=== PATIENT | male | born 1955 | race Caucasian/White ===

== ENCOUNTER 2021-11-30 10:26 | Observation (INO) ==
--- NOTE | 2021-11-26 16:15 | Anesthesiology Consultation ---
Date of Service November 26, 2021 Assessment & Plan (1) Encounter for pre-operative examination: - Case discussed with Dr. Mar who advised pt to have cardiology pre-op evaluation prior to surgery. Pt aware, denied questions or concerns. - cardiology office visit 11/11/2020 S: "...Coronary artery disease, s/p NSTEMI, Single-vessel disease with 95-99% thrombotic occlusion of the circumflex, successfully treated with x1 KATHRYN (2.5 x 28 mm Xience), 06/2014 in [place], [place] at [facility] (report listed in Care Everywhere- summary below). HFrEF, nonischemic cardiomyopathy, EF 35% 06/2020, improved to 45 to 49% 11/2020...At this appointment he was having ongoing shortness of breath- underwent cardiac catheterization on 07/24/2020 showing a patent left circumflex stent and mild nonobstructive CAD otherwise. Patient was continued on goal-directed medical therapy including Entresto, no beta-priscilla due to sinus bradycardia. Repeat echocardiogram on 11/05 showed an improved LVEF of 45-49% with mild diastolic dysfunction, grade 1. There was also a small [id number] shunt through the PFO with Valsalva by saline contrast injection, patient is on aspirin...presents feeling generally well from a cardiac standpoint. Denies any exertional chest pain or shortness of breath. Has been exercising daily by walking around his property which is about 2 acres. He is able to mow the grass independently. Believes that his functional capacity has increased over the last 4 months. Also notes that the use of Advair has helped his breathing...Discontinue Entresto and start lisinopril 5 mg daily, patient was educated to complete a washout period of 36 hours. Patient is to hold his evening dose of Entresto today and both doses tomorrow. He will start lisinopril on ...return in about 4 months..." Pt did not return for f/u appt per [facility] record review. - COVID screening: Per research laboratory specialist on 11/26/2021: Travel screen negative, no known COVID-19 positive contacts or current COVID-19 related symptoms in past 2 weeks. To surgeon's discretion if preop COVID testing needed. Chart Review Chart Review: Pending: Refer to Additional Notes / Consult section and Patient NOT seen in Pre Admission Testing History Surgery Operation Date: 11/30/21 12:15 Proposed Procedures p Open Repair Left Inguinal Hernia with Mesh - Ashish Aguilera MD Height/Weight Height: 5 ft 9 in Weight: 76.204 kg Allergies Allergy/AdvReac Type Severity Reaction Status Date / Time No Known Allergies Allergy Verified 11/26/21 14:34 Medications Home Medications Medication Instructions Recorded Confirmed Last Taken albuterol 90 mcg/actuation aerosol 2 mcg inhalation Q6H PRN Wheezing 07/24/20 11/26/21 Unknown inhaler atorvastatin 80 mg tablet 80 mg PO QAM 07/24/20 11/26/21 Unknown nitroglycerin 0.4 mg sublingual 0.4 mg sublingual DIRECTED PRN 07/24/20 11/26/21 Unknown tablet Chest Pain aspirin 81 mg tablet,delayed 81 mg PO QAM 11/26/21 11/26/21 Unknown release escitalopram oxalate 10 mg tablet 10 mg PO QAM 11/26/21 11/26/21 Unknown (Lexapro) famotidine 20 mg tablet 20 mg PO DAILY PRN Acid Reflux 11/26/21 11/26/21 Unknown fluticasone 250 mcg-salmeterol 50 1 inh inhalation BID 11/26/21 11/26/21 Unknown mcg/dose blistr powdr for inhalation (Advair Diskus) lisinopril 2.5 mg tablet 2.5 mg PO QAM 11/26/21 11/26/21 Unknown Past Medical History Medical History (Updated 11/26/21 @ 16:13 by Christine Martinez PA-C) Acid reflux Bradycardia CAD (coronary artery disease) s/p Cx KATHRYN 2015 Chronic obstructive pulmonary disease res inh few times per week, depends on weather Depression Emphysema, unspecified GERD (gastroesophageal reflux disease) Heart attack 2016 > stents placed at [facility] Heart failure with reduced ejection fraction EF 35% improved to 45-59% 11/2020 History of hepatitis C Hyperlipidemia Hypertension Nonischemic cardiomyopathy follows with [facility] cardiology PFO with atrial septal aneurysm Past Surgical History Surgical History (Updated 11/26/21 @ 15:56 by Christine Martinez PA-C) History of cardiac cath multiple History of cataract surgery bilat History of colonoscopy Hx of inguinal hernia repair bilat as child Social History Smoking Status: Former smoker Do You Dip or Chew Tobacco: No Smoking End Date: 1 year ago Hx Alcohol Use: No Alcohol Intake Frequency 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 Hx Substance Use: No substance use type: does not use Testing Laboratory Results 11/25/2021 WBC: 6 H/H: 14/43 PLATELETS: 194 SODIUM: 140 POTASSIUM: 4.5 CHLORIDE: 101 CO2: 29 BUN: 26 CREATININE: 1.1 GLUCOSE: 107 Electrocardiogram Date: 11/25/21 Sinus rhythm with ventricular pacing, rate 48 bpm Left anterior fascicular block Possible lateral infarct, age undetermined Increased R/S ratio in V1, consider early transition or posterior infarct Echocardiogram Date: 11/05/20 EF 45-49% Grade I diastolic dysfunction Borderline increased LV wall thickness in segments Extensive area of hypokinesis to akinesis of the inferior, posterior and postero-lateral gordon and inferior apex Mild mitral regurgitation Mild tricuspid regurgitation Atrial septal aneurysm Small right to left shunt through PFO Stress Test Date: 07/07/20 Pharmacologic Small area of scar involving the basal/mid inferolateral wall Mildly reduced LV systolic function MPHR 86% Cardiac Catheterization Date: 07/24/20 Left Main (% Stenosis): Normal LAD (% Stenosis): Proximal (30%) and Mid (30% distal to large [id number] bridging) D1 (% Stenosis): Mid (30% stenosis of medial branch distal to bifurcation) Circumflex (% Stenosis): Proximal (Patent stent extending into OM1) and Mid (30% jailed by stentint into OM1) OM1 (% Stenosis): Proximal (Patent stent extending from proximal) OM2 (% Stenosis): Normal L PL1 (% Stenosis): Normal RCA (% Stenosis): Proximal (10%) and Mid (10%) R PDA (% Stenosis): Normal R PL1 (% Stenosis): Normal R PL2 (% Stenosis): Normal AM (% Stenosis): Normal Ramus (% Stenosis): Normal Patent left circumflex stent. Otherwise mild nonobstructive CAD.
[~2021-11-30 10:26] MED LIST: LACTATED RINGER'S 1,000 ML IV SCH; ceFAZolin 2000MG 2,000 MG/15 ML SYR IV SCH
[2021-11-30] MEDS ORDERED: PROPOFOL IV EMULSION 10 MG/ML 20 ML VIAL IV ONE ×2 (11:15→12:30)
[2021-11-30] MEDS ORDERED: MIDAZOLAM HCL 1 MG/ML 2ML VIAL ONE (11:15)
[2021-11-30] MEDS ORDERED: DEXAMETHASONE SOD INJ 4 MG/ML VIAL ONE (11:15)
[2021-11-30] MEDS ORDERED: ONDANSETRON INJ 2 MG/ML 2 ML VIAL ONE (11:15)
[2021-11-30] MEDS ORDERED: fentaNYL citrate 100 MCG/2 ML VIAL ONE (11:15)
[2021-11-30] MEDS ORDERED: KETOROLAC 30 MG/ML VIAL ONE (11:15)
[2021-11-30] MEDS ORDERED: LIDOCAINE 2% MPF LOCAL 5 ML VIAL INFIL ONE (11:15)
[2021-11-30] MEDS ORDERED: BUPIVACAINE 0.5 % 5 MG/1 ML MPF 30ML VIAL ONE (11:52)
[2021-11-30] MEDS ORDERED: BACITRACIN OINT 15 GM TUBE ONE (11:52)
[2021-11-30] MEDS ORDERED: LIDOCAINE 1% LOCAL 20 ML VIAL ONE ×2 (11:53→11:55)
--- NOTE | 2021-11-30 12:02 | History & Physical Bridge Note ---
Date of Service November 30, 2021 History & Physical Bridge Note I have examined the patient, reviewed the History & Physical and in the interval since the performance of the History & Physical I have noted the following changes of clinical significance: no changes noted
[2021-11-30] MEDS ORDERED: GLYCOPYRROLATE 0.2 MG/ML VIAL ONE (12:32)
[2021-11-30] MEDS ORDERED: ePHEDrine sulfate 50 MG/ML AMP IV PRN (12:44)
[2021-11-30] MEDS ORDERED: fentaNYL citrate 100 MCG/2 ML VIAL IV PRN (12:44)
[2021-11-30] MEDS ORDERED: ONDANSETRON INJ 2 MG/ML 2 ML VIAL IV PRN ×2 (12:44→12:59)
[2021-11-30] MEDS ORDERED: ATROPINE SULFATE 0.1 MG/ML 10ML SYR IV PRN (12:44)
--- NOTE | 2021-11-30 12:53 | Post Operative Brief Note ---
Immediate Post Op Note v1 Date of Surgery November 30, 2021 Pre & Post Diagnosis Operation Date: 11/30/21 12:00 Pre-Op Diagnosis: recurrent Left Inguinal Hernia Post-Op Diagnosis: recurrent Left Inguinal Hernia I identified the patient and participated in the time-out.: Yes Procedure Operation Date: 11/30/21 12:00 Actual Procedures p Open left Inguinal Hernia Repair with Mesh(Left) - Ashish Aguilera MD Surgeon Ashish Aguilera MD Building Custodial Supervisor surgical instrument mechanic Estimated Blood Loss 10 Findings Consistent with Post-Op Diagnosis left recurrent indirect inguinal hernia Fluids 800ml Anesthesia Type Local Complications none Disposition Accompanied Patient To Recovery: Yes
[2021-11-30] MEDS ORDERED: ACETAMINOPHEN 325 MG TAB PO PRN (12:59)
--- NOTE | 2021-11-30 13:46 | Anesthesiology Progress Note ---
Date of Service November 30, 2021 Anesthesia Post Procedure Vital Signs Vital Signs: Temp Pulse Pulse Resp BP Pulse Ox O2 Del Method 11/30/21 13:40 52 L 14 129/73 95 Nasal Cannula 11/30/21 13:30 36.4 C L 55 L 18 137/76 93 Room Air 11/30/21 13:20 57 L 23 136/89 94 Room Air 11/30/21 13:10 52 L 16 155/81 H 95 Room Air 11/30/21 13:03 36.3 C L 51 L 16 158/78 H 98 Oxymask 11/30/21 10:51 36.5 C 54 L 20 164/82 H 96 Room Air O2 Flow Rate 11/30/21 13:40 2 11/30/21 13:30 11/30/21 13:20 11/30/21 13:10 11/30/21 13:03 3 11/30/21 10:51 Transfer of Care Handoff Completed per policy Notes Mental Status: alert / awake / arousable Patient Amnestic to Procedure: Yes Nausea / Vomiting: adequately controlled Pain: adequately controlled Airway Patency, RR, SpO2: stable & adequate BP & HR: stable & adequate Hydration State: stable & adequate Anesthetic Complications: no major complications apparent
[2021-11-30] MEDS ORDERED: HYDROmorphone INJ 0.5 MG/0.5 ML SYR IV PRN (14:19)
[2021-11-30] MEDS ORDERED: FAMOTIDINE 20 MG TAB PO PRN (14:19)
[2021-11-30] MEDS ORDERED: LACTATED RINGER'S 1,000 ML IV SCH (14:19)
[2021-11-30] MEDS ORDERED: NITROGLYCERIN SL 0.4 MG/TAB TAB SL PRN (14:19)
[2021-11-30] MEDS ORDERED: ALBUTEROL HFA 8 GM INHALER INH PRN (14:52)
[2021-11-30] MEDS ORDERED: ENOXAPARIN INJ 40 MG/0.4 ML SYR SQ SCH (15:00)
[2021-11-30 16:23] LABS: Creatinine Clr Calc Pharmacy 73.4 ml/min; Est GFR (African American) 91.6 ml/min
[2021-11-30] MEDS: oxyCODONE/ACETAMINOPHEN 5mg/325mg TAB PO PRN ×2 (16:37→22:56)
[2021-11-30] MEDS ORDERED: ceFAZolin 1000MG 1,000 MG/7.5 ML SYR IV ONE (18:00)
[2021-11-30] MEDS ORDERED: FLUTICASONE/VILANTEROL 100/25MCG 14 PUFFS/INHALER INH SCH (21:00)
[2021-11-30] MEDS ORDERED: FLUTICASONE/SALMETEROL 250/50 (ADVAIR) 14 PUFF/1 INHALER INH SCH (21:00)
--- NOTE | 2021-11-30 21:49 | Operative Report (OR) ---
DATE OF PROCEDURE: 11/30/2021. PREOPERATIVE DIAGNOSIS: Recurrent left inguinal hernia. POSTOPERATIVE DIAGNOSIS: Recurrent left indirect inguinal hernia. OPERATION: Open repair of left inguinal hernia with mesh. SURGEON: Ashish Aguilera MD. ANESTHESIA: Conscious sedation plus local. ESTIMATED BLOOD LOSS: About 10 mL. FINDINGS: Recurrent left indirect inguinal hernia. COMPLICATIONS: None. INDICATIONS FOR THE PROCEDURE: This is a 66-year-old gentleman who presented with recurrent left ing uinal hernia with significant heart disease and I recommended to do open repair of left inguinal mendez ia with mesh and sedation plus local. I did talk to the patient about the benefit, risk, alternate p rocedure. I indicated the risks may include, but not limited to, such as bleeding, infection, hernia recurrence, chronic pain, complication related to mesh, myocardial infarction, DVT, stroke, even adni th. The patient understands. He signed informed consent and I answered all questions. DETAILS OF PROCEDURE: After we identified the patient and verified the procedure, we brought the pat ient to the OR, put the patient in the supine position on the OR table. The patient received SCD on bilateral legs to prevent DVT. Also, the patient received 2 grams Ancef IV for prophylactic antibiot ic. The patient received conscious sedation by the anesthesiology. The abdomen and pelvic area was prepped and draped in routine sterile fashion. After timeout, I injected the local anesthesia by usi ng 1% lidocaine mixed with 0.5% Marcaine around the left inguinal area on the old scar area. Then, we made a 4-cm incision about 1 cm below the scar, dissected the subcutaneous layer, reached th e external oblique, then we opened the external oblique, and then mobilized the cord structures. The n, we found the patient had recurrent left indirect inguinal hernia. We mobilized the hernia sac lia k to the abdominal cavity. We chose a large plug to plug the hernia sac, used 2-0 Prolene to close t he hernia neck. Then, I chose a 3 x 5 cm mesh to reinforce the posterior wall. I used 2-0 Prolene s uture mesh to conjoined tendon in continuous running, another 2-0 Prolene suture mesh to left inguina l ligament in continuous running, 2 sutures met together, tied. The mesh seated nicely, no tension. Hemostasis obtained, then I closed the external oblique by using 2-0 Vicryl continuous running, clos ed subcutaneous layer by using 2-0 Vicryl continuous running, closed skin by using 4-0 Vicryl continu ous running. Then we put the dressing on. The patient tolerated the procedure well. All instrument, needle and sponge counts were correct x2 a t the end of the case. The patient was transferred to recovery room in stable condition. After the procedure, I did talk to the patient about the OR finding, the procedure we did, and also the patient required to admit in the hospital for observation overnight based on the patient has significant hea rt disease, the administrative intern recommended. The patient understands. I answered all questions. Job ID: [id number]
[2021-12-01] MEDS: oxyCODONE/ACETAMINOPHEN 5mg/325mg TAB PO PRN ×2 (05:42→12:48)
[2021-12-01 07:09] LABS: Basophils # (auto) 0.01 K/uL (0-0.2); Basophils % (auto) 0.1 %; Hematocrit (blood only) 37.9 % (40.1-51.0); Hemoglobin 13.1 g/dl (14.0-18.0); Immature Granulocytes # (auto) 0.06 K/uL (0.00-0.02); Immature Granulocytes % (auto) 0.6 %; Lymphocytes # (auto) 0.93 K/uL (1.2-3.4); Lymphocytes % (auto) 8.6 %; Mean Corpuscular Hemoglobin 32.3 pg (25.0-34.0); Mean Corpuscular Hgb Conc 34.6 g/dL (32.0-36.0); Mean Corpuscular Volume 93.6 fL (80.0-100.0); Mean Platelet Volume 9.5 fL (9.4-12.4); Monocytes # (auto) 0.72 K/uL (0.24-0.82); Monocytes % (auto) 6.6 %; Neutrophils # (auto) 9.15 K/uL (1.4-6.5); Neutrophils % (auto) 84.1 %; Platelet Count 196 K/uL (130-400); RDW Coefficient of Variation 12.4 % (11.5-14.5); Red Blood Count 4.05 M/uL (4.63-6.08); White Blood Count 10.87 K/ul (4.8-10.8)
[2021-12-01 08:09] LABS: Albumin Globulin Ratio 1.5 (0.9-2); Albumin Level 3.8 gm/dl (3.4-5.0); Bilirubin,Total 0.5 mg/dl (0.2-1.0); Calcium 8.7 mg/dl (8.5-10.1); Globulin 2.6 gm/dl (2.5-4.0); Potassium 4.4 mmol/L (3.5-5.1); Total Protein 6.4 gm/dl (6.0-8.3)
[2021-12-01] MEDS ORDERED: ESCITALOPRAM OXALATE 10 MG TAB PO SCH (09:00)
[2021-12-01] MEDS ORDERED: ASPIRIN 81 MG ECTAB PO SCH (09:00)
[2021-12-01] MEDS ORDERED: ATORVASTATIN 40 MG TAB PO SCH (09:00)
[2021-12-01] MEDS ORDERED: lisinopril 2.5 MG TAB PO SCH (09:00)
[2021-12-01 09:03] LABS: BUN Creatinine Ratio 27.8 (10-20); Creatinine Clr Calc Pharmacy 80.7 ml/min; Est GFR (African American) 102.8 ml/min; Est GFR (Non-African American) 88.7 ml/min
--- NOTE | 2021-12-01 10:37 | Discharge Summary ---
Date of Service December 01, 2021 Admission HPI Per Admitting Provider Patient presented to [facility] on 11/30/2021 for elective left inguinal hernia repair with mesh by Dr. Aguilera. Principal Diagnosis Left inguinal hernia Discharge Exam Constitutional WD/WN, vitals as above no acute distress and not ill appearing Respiratory normal respiratory effort, lungs clear to auscultation Cardiovascular Rate/Rhythm: + bradycardic Heart Sounds: normal S1 and normal S2 Gastrointestinal (Abdomen) Inspection/Auscultation: abdomen normal to inspection; abdomen not distended Percussion/Palpation: + abdomen tender (left groin at incision site) and abdomen soft; no guarding and abdomen not rigid Ecchymosis of the medial left groin Skin no rashes, warm and dry Psychiatric A+Ox3, euthymic affect Discharge Data Allergies Allergy/AdvReac Type Severity Reaction Status Date / Time No Known Allergies Allergy Verified 11/30/21 10:54 Consultations 11/30/21 14:19 Consult Hospitalist Routine Procedures Performed Operation Date: 11/30/21 12:00 Actual Procedures p Left Open Inguinal Hernia Repair with Mesh(Left) - Ashish Aguilera MD Hospital Course (1) Inguinal hernia: Plan Patient was taken to operating room for repair of left inguinal hernia and tolerated procedure well. He was admitted postoperatively for observation given his cardiac comorbidities for close monitoring. Patient evaluated on POD # 1 and doing well. Tolerated regular diet, no n,v , no chest pain or shortness of breath, postop pain mild but controlled, urinating without difficulty. Hemodynamically stable with HR in 50's which is stable for him. Patient was discharged home on POD # 1 in stable condition. Total Time Total Time Spent Total Time Spent (In Minutes): 30 minutes Total Time Includes: Examination of the Patient, Discharge Planning and Medication Reconciliation Discharge Plan Discharge Items Patient Disposition: Home - Self-Care Reason For Visit: Left Inguinal Hernia Discharge Diagnosis: status post open left inguinal hernia repair Activity: Per Instructions section Non-emergency contact: Primary Care Provider and Surgeon Call non-emergency contact if: you have any medication questions, your pain is not controlled, your pain is worsening, you have a fever, your temperature is above 101, your wound has increased redness, your wound has increased drainage and your wound pain has increased Follow-up/Referrals: [facility],Medicine [Primary Care Provider] - Diet: Regular Addtl Attending Provider Instructions: ACTIVITY RECOMMENDATIONS: * Walk as much as possible. * No heavy lifting (>10 lbs.) for 4-6 weeks. SPECIAL CARE INSTRUCTIONS: * Ice to hernia repair site on and off until bedtime tonight. * May shower in 48 hours. Sponge bath around incision in meantime. On , Let water run over area and pat dry. * Leave steri strips on for one week and then remove. * Call the surgeon's office with any questions or concerns - (ex. temperature higher than 101 degrees F, excessive bleeding or pain). MEDICATIONS: Resume previous medications unless instructed otherwise by your surgeon. - May take extra strength Tylenol as needed for mild to moderate pain * May take Ibuprofen 600 mg every 6 hours as needed (take with food) * Percocet 1 every 6 hours, as needed for moderate to severe pain - Recommend daily stool softener (Colace) while taking narcotic pain medication to prevent constipation or straining. Drink plenty of water daily. FOLLOW UP VISIT: If not already scheduled, please call the office to schedule a two week follow-u p appointment. Office number Pending Studies at Discharge: No Stand-Alone Forms: [facility] [employer], Smoking Cessation Medications and DC Order Prescriptions: New oxycodone-acetaminophen 5-325 mg tablet 1 tab PO Q6H PRN (Reason: pain) Qty: 10 0RF Continued atorvastatin 80 mg Tablet 80 mg PO QAM nitroglycerin 0.4 mg Tablet, Sublingual 0.4 mg sublingual DIRECTED PRN (Reason: Chest Pain) Rx Instructions: 1 sl q 5 mins for cp x 3 doses albuterol 90 mcg/actuation Aerosol 2 mcg INHALATION Q6H PRN (Reason: Wheezing) Rx Instructions: 2 puffs q 6 hrs as needed fluticasone propion-salmeterol [Advair Diskus] 250-50 mcg/dose Blister With Device 1 inh INHALATION BID aspirin 81 mg Tablet,Delayed Release (Dr/Ec) 81 mg PO QAM lisinopril 2.5 mg Tablet 2.5 mg PO QAM escitalopram oxalate [Lexapro] 10 mg Tablet 10 mg PO QAM famotidine 20 mg Tablet 20 mg PO DAILY PRN (Reason: Acid Reflux) Discharge Orders: Discharge Order (Routine); Ordered 12/01/21 Ordered By: Lexus Bello Admission Data Admit Date/Time: 11/30/21 13:00 Attending Provider: Ashish Aguilera Admit Provider: Ashish Aguilera [facility] Other Providers: Lurdes Palacios ; Jagruti Russo I. ; Hanna Lora ; Ciro Sanchez ; Angela Wooten ; Pao Salinas ; Caren Velasquez ; Shantanu Morrow ; Caio Ramirez ; Sandip Vizcaino ; Pilar Ryan ; Michael Bingham ; Judith Dunn ; Lorrie Crane ; Dominick Singh ; Kristen King ; Analilia Rivera ; Ambrosio Kilgore ; Funmi Dickens I. ; Beto Blum ; Maurisio Calvin ; Judith Sánchez ; Connie Campbell ; Cb Schmitt ; Prosper Bustillos ; Hugo Espinal ; Maciej Alexander ; Tonya Garrett
--- NOTE | 2021-12-01 11:37 | Consultation ---
Date of Consultation December 01, 2021 Assessment & Plan (1) Inguinal hernia: (2) CAD (coronary artery disease): (3) Dyslipidemia: (4) GERD (gastroesophageal reflux disease): Plan Patient is a 66-year-old male with past medical history of CAD status post stent in left circumflex in 2014, HFrEF, hyperlipidemia, COPD and sinus bradycardia is admitted to the hospital after undergoing surgery for left inguinal hernia on 11/30. 1) Recurrent Inguinal Hernia s/p Repair on 11/30 2) CAD s/p KATHRYN stent in 06/2014 3) Hyperlipidemia 4) Sinus Bradycardia Afebrile, normotensive and saturating well in room air. Telemetry shows sinus bradycardia; no episode of pauses Hb- 13.1 WBC- 10.87. Plan; Continue on current home medication including aspirin, lisinopril and Lipitor. 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 --Follow-up with his primary care doctor -- Pain control, DVT prophylaxis as per primary History of Present Illness Reason for Consultation: Postop left recurrent inguinal hernia repair Attending Physician: Ashish Aguilera MD History of Present Illness Patient is a 66-year-old male with past medical history of CAD status post stent in left circumflex in 2014, HFrEF, hype rlipidemia, COPD and sinus bradycardia is admitted to the hospital after undergoing surgery for left inguinal hernia on 11/30. Patient seen and examined at bedside. Is comfortable; not in any distress. He denies any chest pain, shortness of breath, abdominal discomfort, palpitation, dizziness, fever, chills, cough, melena, hematemesis or other urinary symptoms. He was seen by Dr. Rausch as outpatient on 11/27 preoperatively. His past medical history significant for coronary artery disease with NSTEMI requiring stent placement in circumflex in 06/2014. He is known to have sinus bradycardia and is recommended to have Zio patch monitoring as outpatient after the surgery. He is currently taking lisinopril for high blood pressure. The dose of lisinopril was decreased due to episode of dizziness. He is on aspirin 81 mg as secondary prophylaxis for CAD. He is on high-dose statin with Lipitor 80 mg once daily. He is a former smoker, currently works at [employer]. He denies any illicit drug use or alcohol abuse. Allergies Allergy/AdvReac Type Severity Reaction Status Date / Time No Known Allergies Allergy Verified 11/30/21 10:54 Home Medications Medication Instructions Recorded Confirmed Type albuterol 90 mcg/actuation aerosol 2 mcg inhalation Q6H PRN Wheezing 07/24/20 11/30/21 History inhaler atorvastatin 80 mg tablet 80 mg PO QAM 07/24/20 11/30/21 History nitroglycerin 0.4 mg sublingual 0.4 mg sublingual DIRECTED PRN 07/24/20 0 11/30/21 History tablet Chest Pain aspirin 81 mg tablet,delayed 81 mg PO QAM 11/26/21 11/30/21 History release escitalopram oxalate 10 mg tablet 10 mg PO QAM 11/26/21 11/30/21 History (Lexapro) famotidine 20 mg tablet 20 mg PO DAILY PRN Acid Reflux 11/26/21 11/30/21 History fluticasone 250 mcg-salmeterol 50 1 inh inhalation BID 11/26/21 11/30/21 History mcg/dose blistr powdr for inhalation (Advair Diskus) lisinopril 2.5 mg tablet 2.5 mg PO QAM 11/26/21 11/30/21 History oxycodone-acetaminophen 5 mg-325 1 tab PO Q6H PRN pain #10 tabs 12/01/21 Rx mg tablet Patient History Medical History (Updated 12/01/21 @ 11:40 by Maciej Alexander MD) Acid reflux Bradycardia CAD (coronary artery disease) s/p Cx KATHRYN 2014 Chronic obstructive pulmonary disease res inh few times per week, depends on weather Depression Emphysema, unspecified GERD (gastroesophageal reflux disease) Heart attack 2016 > stents placed at [facility] Heart failure with reduced ejection fraction EF 35% improved to 45-59% 11/2020 History of hepatitis C Hyperlipidemia Hypertension Nonischemic cardiomyopathy follows with [facility] cardiology PFO with atrial septal aneurysm Surgical History History of cardiac cath multiple History of cataract surgery bilat History of colonoscopy Hx of inguinal hernia repair bilat as child Social History Smoking Status: Former smoker Smoking End Date: 1 year ago; Second Hand Exposure: No; Do You Dip or Chew Tobacco: No; Tobacco Cessation Education Requested by Patient: No Hx Alcohol Use: No Hx Substance Use: No Preferred Language: Nigerian Communication Ability: Effective Build And Release Manager Required: No Beliefs That Will Affect Care: None Current Living Situation: Spouse Other Information That Helps Us Care for You: No Feels Safe at Home: Yes Safety Concerns: Feels Safe At This Time Assistive Devices: Glasses Review of Systems Review of Systems: All systems reviewed & are unremarkable except as noted in Subjective Physical Exam Physical Exam: Constitutional: WD/WN, vitals as above, NAD, sitting up in bed, pleasant, conversing easily Respiratory: normal respiratory effort, lungs clear to auscultation, no wheeze, rales, rhonchi. Normal insp/exp effort, no accessory muscle use Cardiovascular: RRR, no murmur, no edema Vessels: no JVD or carotid bruit Chest: normal inspection of chest Abdomen: Soft, dressing in place. Musculoskeletal: no cyanosis or clubbing, extremities motor strength 5/5 Skin: no rashes, warm and dry normal turgor Neurologic: PERRL, EOMI, accommodation nl, no face palsy, no dysarthria CN's II- XI intact bilaterally and moves all extremities Psychiatric: A+Ox3, euthymic affect Lymphatic: no cervical or axillary lymphadenopathy : deferred Results & Data ([facility]) Vital Signs (Past 12 Hours) Vital Signs Temp Pulse Pulse Resp BP Pulse Ox O2 Del Method 12/01/21 07:29 36.3 C L 51 L 16 134/70 93 Room Air 12/01/21 07:28 48 L 12/01/21 03:22 36.6 C 60 16 130/53 L 90 Room Air 12/01/21 01:35 51 L Laboratory Results Laboratory Results WBC 10.87 K/ul (4.8-10.8) H 12/01/21 06:46 RBC 4.05 M/uL (4.63-6.08) L 12/01/21 06:46 Hgb 13.1 g/dl (14.0-18.0) L 12/01/21 06:46 Hct 37.9 % (40.1-51.0) L 12/01/21 06:46 MCV 93.6 fL (80.0-100.0) 12/01/21 06:46 MCH 32.3 pg (25.0-34.0) 12/01/21 06:46 MCHC 34.6 g/dL (32.0-36.0) 12/01/21 06:46 RDW Std Deviation 43.0 fL (36.4-46.3) 12/01/21 06:46 RDW Coeff of Nate 12.4 % (11.5-14.5) 12/01/21 06:46 Plt Count 196 K/uL (130-400) 12/01/21 06:46 MPV 9.5 fL (9.4-12.4) 12/01/21 06:46 Immature Gran % (Auto) 0.6 % 12/01/21 06:46 Neut % (Auto) 84.1 % 12/01/21 06:46 Lymph % (Auto) 8.6 % 12/01/21 06:46 Harris % (Auto) 6.6 % 12/01/21 06:46 Eos % (Auto) 0.0 % 12/01/21 06:46 Baso % (Auto) 0.1 % 12/01/21 06:46 Neut # (Auto) 9.15 K/uL (1.4-6.5) H 12/01/21 06:46 Lymph # (Auto) 0.93 K/uL (1.2-3.4) L 12/01/21 06:46 Harris # (Auto) 0.72 K/uL (0.24-0.82) 12/01/21 06:46 Eos # (Auto) 0.00 K/uL (0-0.50) 12/01/21 06:46 Baso # (Auto) 0.01 K/uL (0-0.2) 12/01/21 06:46 Immature Gran # (Auto) 0.06 K/uL (0.00-0.02) H 12/01/21 06:46 Sodium 136 mmol/L (136-145) 12/01/21 06:46 Potassium 4.4 mmol/L (3.5-5.1) 12/01/21 06:46 Chloride 103 mmol/L (98-107) 12/01/21 06:46 Carbon Dioxide 28 mmol/L (21-32) 12/01/21 06:46 Anion Gap 5 (3-11) 12/01/21 06:46 BUN 25 mg/dl (6-23) H 12/01/21 06:46 Creatinine 0.90 mg/dl (0.6-1.4) 12/01/21 06:46 Est Cr Clr Drug Dosing 80.7 ml/min 12/01/21 06:46 Est GFR ( Amer) 102.8 ml/min 12/01/21 06:46 Est GFR (Non-Af Amer) 88.7 ml/min 12/01/21 06:46 BUN/Creatinine Ratio 27.8 (10-20) H 12/01/21 06:46 Glucose 121 mg/dl (70-99(Fasting)) H 12/01/21 06:46 Calcium 8.7 mg/dl (8.5-10.1) 12/01/21 06:46 Total Bilirubin 0.5 mg/dl (0.2-1.0) 12/01/21 06:46 AST 14 U/L (13-39) 12/01/21 06:46 ALT 15 U/L (7-52) 12/01/21 06:46 Alkaline Phosphatase 58 U/L (34-104) 12/01/21 06:46 Total Protein 6.4 gm/dl (6.0-8.3) 12/01/21 06:46 Albumin 3.8 gm/dl (3.4-5.0) 12/01/21 06:46 Globulin 2.6 gm/dl (2.5-4.0) 12/01/21 06:46 Albumin/Globulin Ratio 1.5 (0.9-2) 12/01/21 06:46 SARS-CoV-2, RNA, NAAT NEGATIVE (NEGATIVE) 11/30/21 10:47
== END 2021-12-01 13:30 | disposition home or self-care (01) ==
LOC: 3E 10:26 → ASU 10:26 → 2N 20:04

== ENCOUNTER 2024-11-19 12:09 | Inpatient (IN) ==
--- NOTE | 2024-11-19 13:02 | XRay Report ---
XR chest 1V not portable CLINICAL HISTORY: Chest pain, nonspecific COMPARISON STUDY: 09/28/2018 FINDINGS: There is mild cardiomegaly with mild pulmonary vascular congestion. No consolidation or ple ural effusion. No pneumothorax. IMPRESSION: Mild CHF. ACT 112: Negative or not required by law. Electronically signed by: Lee Woods M.D. 11/19/2024 1:01 PM
--- NOTE | 2024-11-19 13:14 | Emergency Department Note ---
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 He was seen at oracle application architect this morning and advised to come to the ER for likely heart catheterization. On arrival patient has EKG with bigeminy no overt ischemia. He does have a relatively low pulse though his heart rate is in the 60s with bigeminy. His blood pressure is quite elevated. I somewhat suspect this is driven by the anxiety of the situation and he does not have any clear signs or symptoms of hypertensive emergency. I ordered initial labs EKG and workup and immediately contact cardiology team. They plan to take him urgently up to the Electron Beam Welding Machine Operator. Will defer any anticoagulation to their team. Patient was stable at time of transfer to Electron Beam Welding Machine Operator. At this time without significant hypoxia shortness of breath or other acute findings or history I think PE is quite low and thus I do not feel he requires emergent CT PE prior to Electron Beam Welding Machine Operator evaluation. As patient went upstairs labs did start coming back. Fortunately troponin is normal though he has a mildly elevated BUN of uncertain etiology. I discussed the case with the hospitalist team who will take over following the cath. Triage/Nursing Notes reviewed by Me External Chart Review by me: Patient's discharge summary from 12/01/2021 was reviewed by me for past medical history Differential:Premature contractions, electrolyte abnormality, cardiac dysrhythmia, thyroid dysfunction, pulmonary embolism, infection, gastrointestinal, as well as other pathologies. Vital Signs: reviewed and remarkable for hypertension Labs:ED labs Reviewed by me and remarkable for bun elevation Imaging:X ray results are stated below per my interpretation: Chest: 1 view: No infiltrate, no effusion, normal cardiac border. EKG:As per my interpretation. Indication chest pain. Sinus rhythm at 62 bpm with frequent episodes of bigeminy with PVCs. And intraventricular block is noted as well. QTc of 430. There are no previous EKGs for comparison Cardiac/Tele Monitoring: Cardiac Monitoring: An Order was placed for continuous cardiac monitoring. The monitor shows a rate of 60 with a bigeminy sinus rhythm. Consults:Discussed with Dr. Valadez of cardiology service who plans to take patient to Electron Beam Welding Machine Operator for further evaluation. Discussed with hospital service to further manage. Plan: Disposition:Hospitalization. Condition: Fair History of Present Illness: 69-year-old gentleman arrives for evaluation of chest pains and palpitations. Patient notes a month or 2 of increasing palpitations. Intermittent episodes of chest pain feeling some tightness. This most recently occurred this morning. Also notes that at times he gets quite anxious and he also has increasing blood pressure. Patient was seen at [facility] last week and had labs and a CAT scan. Discharged to follow-up with cardiology. He saw cardiology today who advised to come to the ER for an emergent heart catheterization. He states he does not currently have any symptoms while sitting here at rest. He is not currently having any chest pain. He has not had any syncope. He denies any recent trauma or injuries. Patient is on no blood thinners other than aspirin 81 mg daily. He does have a history of stenting to the LAD about 10 years ago following a heart attack. Past Medical History: Hypertension, CAD, asthma, COPD, dyslipidemia Home Medications:See Below Allergies:nkda Vitals:Blood Pressure: 149/85, Pulse 63, RR 16, T 36.8C, O2 93% on RA Physical Exam: GENERAL: Patient is anxious appearing and in mild distress. RESPIRATORY: No dyspnea. Clear to auscultation and equal bilaterally. CARDIOVASCULAR: Regular rate and rhythm.No murmur appreciated. GASTROINTESTINAL: Abdomen soft, non-tender, no peritonitis. EXTREMITIES: Normal motion all extremities, no cyanosis, no edema. NEUROLOGIC: Alert and oriented. No focal neurologic deficits appreciated SKIN: No rash, no jaundice, no diaphoresis. PSYCH: Appropriate GCS: 15 ED Course: Times/Reassessments: Stable and taken to Electron Beam Welding Machine Operator Dru Rios MD Past Med/Surg History Problem List (Updated 11/20/24 @ 16:25 by Dru Rios MD) Bigeminy (Acute) Cardiomyopathy Acute heart failure with mildly reduced ejection fraction (HFmrEF, 41-49%) Nocturnal hypoxia Nonischemic cardiomyopathy follows with [facility] cardiology COPD, severe NSVT (nonsustained ventricular tachycardia) Frequent PVCs (Acute) Chest pain (Acute) GERD (gastroesophageal reflux disease) Dyslipidemia CAD (coronary artery disease) Inguinal hernia Medical History PFO with atrial septal aneurysm Bradycardia Heart failure with reduced ejection fraction EF 35% improved to 45-59% 11/2020 Nonischemic cardiomyopathy follows with [facility] cardiology GERD (gastroesophageal reflux disease) History of hepatitis C Emphysema, unspecified Encounter for pre-operative examination CAD (coronary artery disease) s/p Cx KATHRYN 2014 Hypertension Hyperlipidemia Acid reflux Depression Heart attack 2016 > stents placed at [facility] Chronic obstructive pulmonary disease res inh few times per week, depends on weather Surgical History Hx of inguinal hernia repair bilat as child History of colonoscopy History of cataract surgery bilat History of cardiac cath multiple Social History Smoking Status: Former smoker (44 pack years) Second Hand Exposure: No; Do You Dip or Chew Tobacco: No; Hx Alcohol Use: No Hx Substance Use: No Preferred Language: Kuwaiti Communication Ability: Effective Bag Washer Required: No Beliefs That Will Affect Care: None Current Living Situation: Spouse Feels Safe at Home: Yes Safety Concerns: Feels Safe At This Time Assistive Devices: Oxygen - at Night Allergies Allergies Allergy/AdvReac Type Severity Reaction Status Date / Time No Known Allergies Allergy Verified 11/30/21 10:54 Home Meds Home Medications Medication Instructions Recorded Confirmed albuterol 90 mcg/actuation aerosol 2 mcg inhalation Q6H PRN Wheezing 07/24/20 11/19/24 inhaler atorvastatin 80 mg tablet 80 mg PO QAM 07/24/20 11/19/24 nitroglycerin 0.4 mg sublingual 0.4 mg sublingual DIRECTED PRN 07/24/20 11/19/24 tablet Chest Pain aspirin 81 mg tablet,delayed 81 mg PO QAM 11/26/21 11/19/24 release escitalopram oxalate 10 mg tablet 10 mg PO QAM 11/26/21 11/19/24 (Lexapro) famotidine 20 mg tablet 20 mg PO DAILY PRN Acid Reflux 11/26/21 11/19/24 budesonide 160 mcg-glycopyr 9 1 inh inhalation UD 11/19/24 11/19/24 mcg-formot 4.8 mcg/actuation HFA inhaler ([employer]) doxycycline hyclate 100 mg tablet 100 mg PO BID 11/19/24 11/19/24 ipratropium 0.5 mg-albuterol 3 mg 3 ml inhalation UD PRN sob 11/19/24 11/19/24 (2.5 mg base)/3 mL nebulization soln ipratropium 20 mcg-albuterol 100 1 puff inhalation UD 11/19/24 11/19/24 mcg/actuation mist for inhalation (Combivent Respimat) Previous Rx's Medication Instructions Recorded furosemide 20 mg tablet 20 mg PO QAM #30 tabs 11/20/24 metoprolol succinate 25 mg 25 mg PO DAILY #30 tabs 11/20/24 tablet,extended release 24 hr sacubitril 24 mg-valsartan 26 mg 1 tab PO BID #60 tabs 11/20/24 tablet (Entresto) Results & Data (ED) Vital Signs Vital Signs - 24 hr 11/19/24 12:30 11/19/24 13:03 11/19/24 13:03 Temperature 36.8 C Temperature Source Skin Pulse Rate 47 L Pulse Rate [Apical] 63 Pulse Rhythm [Apical] Irregular Respiratory Rate 20 16 Respiratory Effort / Characteristics Non-Labored Spontaneous Non-Labored Spontaneous Respiratory Depth Normal Normal Respiratory Pattern Regular Regular Blood Pressure 136/61 Blood Pressure [Left Arm] 149/85 H Blood Pressure Mean 86 Blood Pressure Mean [Left Arm] 106 Blood Pressure Position [Left Arm] Semi-fowlers Pulse Oximetry 94 93 93 Oxygen Delivery Method Room Air Room Air Room Air Sepsis Recent Fever Within 48 Hours No Sepsis New/Unexplained Change in Mental Status N/A Sepsis Action Taken by Nursing No Action Required 11/19/24 13:03 Temperature Temperature Source Pulse Rate Pulse Rate [Apical] Pulse Rhythm [Apical] Respiratory Rate Respiratory Effort / Characteristics Respiratory Depth Respiratory Pattern Blood Pressure Blood Pressure [Left Arm] Blood Pressure Mean Blood Pressure Mean [Left Arm] Blood Pressure Position [Left Arm] Pulse Oximetry 93 Oxygen Delivery Method Room Air Sepsis Recent Fever Within 48 Hours Sepsis New/Unexplained Change in Mental Status Sepsis Action Taken by Nursing Laboratory Data 11/19/24 12:51 11/19/24 12:51 Lab Results 09/15/25 Range/Units 12:51 WBC 9.94 (4.8-10.8) K/ul RBC 4.37 L (4.70-6.10) M/uL Hgb 13.5 L (14.0-18.0) g/dl Hct 40.6 L (42.0-52.0) % MCV 92.9 (80.0-100.0) fL MCH 30.9 (25.0-34.0) pg MCHC 33.3 (32.0-36.0) g/dL RDW Std Deviation 46.8 H (36.4-46.3) fL RDW Coeff of Nate 13.7 (11.5-14.5) % Plt Count 189 (130-400) K/uL MPV 10.3 (9.4-12.4) fL Immature Gran % (Auto) 4.2 % Neut % (Auto) 77.5 % Lymph % (Auto) 12.2 % Childress % (Auto) 4.9 % Eos % (Auto) 0.5 % Baso % (Auto) 0.7 % Neut # (Auto) 7.70 H (1.40-6.50) K/uL Lymph # (Auto) 1.21 (1.20-3.40) K/uL Childress # (Auto) 0.49 (0.11-0.59) K/uL Eos # (Auto) 0.05 (0.00-0.50) K/uL Baso # (Auto) 0.07 (0.00-0.20) K/uL Immature Gran # (Auto) 0.42 H (0.01-0.20) K/uL PT 10.1 (9.0-12.0) Seconds INR 0.9 (0.9-1.1) APTT 24 (21-31) Seconds PTT Ratio 0.9 Sodium 139 (136-145) mmol/L Potassium 4.5 (3.5-5.1) mmol/L Chloride 105 (98-107) mmol/L Carbon Dioxide 29 (21-32) mmol/L Anion Gap 5 (3-11) BUN 39 H (6-23) mg/dl Creatinine 1.10 (0.6-1.4) mg/dl Est Cr Clr Drug Dosing 74.6 ml/min eGFR 72.67 BUN/Creatinine Ratio 35.5 H (10-20) Glucose 125 H (70-99(Fasting)) mg/dl Calcium 8.7 (8.6-10.3) mg/dl Magnesium 2.0 (1.7-2.4) mg/dl Total Bilirubin 0.5 (0.2-1.0) mg/dl AST 22 (13-39) U/L ALT 28 (7-52) U/L Alkaline Phosphatase 57 (34-104) U/L Troponin I High Sens 11.9 (0-20) pg/ml Total Protein 6.9 (6.0-8.3) gm/dl Albumin 3.9 (3.4-5.0) gm/dl Globulin 3.0 (2.5-4.0) gm/dl Albumin/Globulin Ratio 1.3 (0.9-2) TSH 0.941 (0.300-4.500) uIu/ml Administered Medications Albuterol (Albuterol Hfa 8 Gm Inhaler (Combivent Respimat P&T Subs)) 1 puffs INH TIDR [facility]; Protocol Stop: 12/19/24 18:59 Last Admin: 11/20/24 13:21 Dose: Not Given Documented By: Admin: 11/20/24 09:06 Dose: 1 puffs Documented By: Admin: 11/19/24 21:09 Dose: 1 puffs Documented By: carla Aspirin (Aspirin 81 Mg Ectab) 81 mg PO [facility] Stop: 12/20/24 08:59 Last Admin: 11/20/24 09:07 Dose: 81 mg Documented By: DAVE Atorvastatin Calcium (Atorvastatin 40 Mg Tab) 80 mg PO [facility] Stop: 12/20/24 08:59 Last Admin: 11/20/24 09:07 Dose: 80 mg Documented By: DAVE Doxycycline Hyclate (Doxycycline Hyclate 100 Mg Cap) 100 mg PO BID [facility] Stop: 11/21/24 20:59 Last Admin: 11/20/24 09:07 Dose: 100 mg Documented By: Admin: 11/19/24 20:09 Dose: 100 mg Documented By: carla Escitalopram Oxalate (Escitalopram Oxalate 10 Mg Tab) 10 mg PO [facility] Stop: 12/20/24 08:59 Last Admin: 11/20/24 09:07 Dose: 10 mg Documented By: DAVE Fluticasone Furoate (Fluticasone Furoate 200mcg 14 Puffs/Inhaler) 1 puffs INH DAILY [facility] Stop: 12/20/24 08:59 Last Admin: 11/20/24 09:07 Dose: 1 puffs Documented By: DAVE Furosemide (Furosemide 20 Mg Tab) 20 mg PO QAM [facility] Stop: 12/20/24 08:59 Last Admin: 11/20/24 09:08 Dose: 20 mg Documented By: DAVE Ipratropium Elrama (Ipratropium Hfa Inhaler (Combivent Respimat P&T Subs)) 1 puffs INH TIDR [facility]; Protocol Stop: 12/19/24 18:59 Last Admin: 11/20/24 13:21 Dose: Not Given Documented By: Admin: 11/20/24 09:06 Dose: 1 puffs Documented By: Admin: 11/19/24 21:08 Dose: 1 puffs Documented By: carla Lisinopril (Lisinopril 2.5 Mg Tab) 2.5 mg PO QAM [facility] Stop: 12/20/24 08:59 Last Admin: 11/20/24 09:08 Dose: 2.5 mg Documented By: DAVE Umeclidinium/Vilanterol (Umeclidinium/Vilanterol 62.5/25mcg 7 Puffs/Inhaler) 1 puffs INH DAILY [facility] Stop: 12/20/24 08:59 Last Admin: 11/20/24 09:09 Dose: 1 puffs Documented By: DAVE Discontinued Medications Fentanyl Citrate (Fentanyl Citrate Pf 100 Mcg/2 Ml Vial) Confirm Administered Dose 100 mcg .ROUTE .STK-MED ONE Stop: 11/19/24 14:29 Last Increment: 11/19/24 15:26 Dose: 25 mcg Documented By: HILDA Heparin Sodium (Porcine) (Heparin (Porcine) 1000 Unit/Ml 10 Ml (Electron Beam Welding Machine Operator Use Only)) Confirm Administered Dose 10,000 units .ROUTE .STK-MED ONE Stop: 11/19/24 14:29 Last Admin: 11/19/24 15:26 Dose: 5,000 units Documented By: HILDA Heparin Sodium/Sodium Chloride (Heparin In Nss Infusion 1000 Unit/500 Ml (2 U/Ml) Bag) Confirm Administered Dose 3,000 units IV .STK-MED ONE Stop: 11/19/24 14:29 Last Admin: 11/19/24 14:54 Dose: 3,000 units Documented By: HILDA Ioversol (Optiray 350) Confirm Administered Dose 1 ml .ROUTE .STK-MED ONE Stop: 11/19/24 14:29 Last Admin: 11/19/24 15:25 Dose: 50 ml Documented By: HILDA Metoprolol Succinate (Metoprolol Succ 25mg Ext Rel Tab) 12.5 mg PO DAILY [facility] Stop: 12/20/24 08:59 Last Admin: 11/20/24 09:08 Dose: 12.5 mg Documented By: DAVE Metoprolol Succinate (Metoprolol Succ 50mg Ext Rel Tab) 12.5 mg PO NOW STA Stop: 11/20/24 12:14 Last Admin: 11/20/24 12:40 Dose: 12.5 mg Documented By: DAVE Midazolam HCl (Midazolam Hcl 1 Mg/Ml 2ml Vial) Confirm Administered Dose 2 mg .ROUTE .STK-MED ONE Stop: 11/19/24 14:29 Last Increment: 11/19/24 15:25 Dose: 1 mg Documented By: HILDA Nicardipine HCl (Nicardipine 2,000 Mcg/20 Ml Syr) Confirm Administered Dose 2,000 mcg .ROUTE .STK-MED ONE Stop: 11/19/24 14:29 Last Admin: 11/19/24 14:54 Dose: 2,000 mcg Documented By: HILDA Nitroglycerin/Dextrose (Nitroglycerin/D5w 100mcg/Ml 20ml Syr) Confirm Administered Dose 2,000 mcg .ROUTE .STK-MED ONE Stop: 11/19/24 14:29 Last Admin: 11/19/24 14:54 Dose: 2,000 mcg Documented By: HILDA Imaging Data Radiologist's Impression: Chest X-Ray 11/19/24 12:36 XR chest 1V not portable CLINICAL HISTORY: Chest pain, nonspecific COMPARISON STUDY: 09/28/2018 FINDINGS: There is mild cardiomegaly with mild pulmonary vascular congestion. No consolidation or pleural effusion. No pneumothorax. IMPRESSION: Mild CHF. ACT 112: Negative or not required by law. Electronically signed by: Lee Woods M.D. 11/19/2024 1:01 PM Discharge Plan Visit Data Chief Complaint: Referred by Doctor Stated Complaint: HEART, DOC REFFERAL ED Provider: Dru Rios Discharge Problem: Chest pain, Frequent PVCs, Bigeminy Patient Disposition: Admitted As Inpatient Condition: Fair Discharge Instructions Interventions: ED Discharge Assessment Last Done: 11/19/24 14:17 Discharge Problem: Chest pain Qualifiers: Chest pain type: unspecified Qualified Code(s): R07.9 - Chest pain, unspecified
[2024-11-19 13:27] LABS: Hematocrit (blood only) 40.6 % (42.0-52.0); Hemoglobin 13.5 g/dl (14.0-18.0); Immature Granulocytes # (auto) 0.42 K/uL (0.01-0.20); Immature Granulocytes % (auto) 4.2 %; Mean Corpuscular Hemoglobin 30.9 pg (25.0-34.0); Mean Corpuscular Volume 92.9 fL (80.0-100.0); Platelet Count 189 K/uL (130-400); RDW Standard Deviation 46.8 fL (36.4-46.3); Red Blood Count 4.37 M/uL (4.70-6.10); White Blood Count 9.94 K/ul (4.8-10.8)
[2024-11-19 13:43] LABS: Alanine Aminotransferase 28.0 U/L (7-52); Albumin Globulin Ratio 1.3 (0.9-2); Alkaline Phosphatase 57.0 U/L (34-104); Anion Gap 5.0 (3-11); Bilirubin,Total 0.5 mg/dl (0.2-1.0); Blood Urea Nitrogen 39.0 mg/dl (6-23); Calcium 8.7 mg/dl (8.6-10.3); Carbon Dioxide 29.0 mmol/L (21-32); Chloride 105.0 mmol/L (98-107); Creatinine Clr Calc Pharmacy 74.6 ml/min; Globulin 3.0 gm/dl (2.5-4.0); Glucose 125.0 mg/dl (70-99(Fasting)); Potassium 4.5 mmol/L (3.5-5.1); Sodium 139.0 mmol/L (136-145); Total Protein 6.9 gm/dl (6.0-8.3)
[2024-11-19 13:46] LABS: INR 0.9 (0.9-1.1); Partial Thromboplastin Time 24 Seconds (21-31); Prothrombin Time 10.1 Seconds (9.0-12.0)
--- NOTE | 2024-11-19 14:24 | Cardiology Consultation ---
Date of Consultation November 19, 2024 Assessment & Plan (1) CAD (coronary artery disease): (2) Chest pain: (3) Frequent PVCs: (4) NSVT (nonsustained ventricular tachycardia): (5) Nonischemic cardiomyopathy: (6) COPD, severe: Plan 69-year-old male presents with worsening chest discomfort, shortness of breath, decline in functional capacity with history of severe COPD and single-vessel CAD requiring stent implantation to the circumflex as described above. Initial high sensitive troponin within normal limits. ECG with frequent PVCs, no ischemic changes. Further ischemic evaluation warranted. Risk versus benefit of cardiac catheterization with coronary angiography versus pharmacologic stress testing (Lexiscan nuclear stress test) discussed. Patient agreeable to proceed with coronary angiography and left heart catheterization. Further recommendations pending review results. Consider electrophysiology consultation regarding frequent PVCs/nonsustained VT during hospitalization. Jarvis Valadez DO, [facility] History of Present Illness Reason for Consultation: Chest pain, CAD Requesting Physician: Edson psacual Attending Physician: Edson pascual History of Present Illness 69-year-old male presents with chest pain and shortness of breath. Evaluated [facility] ER a few days ago for chest discomfort and shortness of breath. At that time, symptoms were felt to be related to his underlying COPD and he was discharged to home. He presented today to the outpatient cardiology clinic with concerns regarding intermittent chest discomfort and shortness of breath. Notes significantly reduced functional capacity/exercise tolerance over the past few years. Wearing 2 L oxygen at night due to underlying severe COPD. History of single-vessel CAD and nonischemic cardiomyopathy. Most recent cardiac catheterization performed July 2019 demonstrating patent left circumflex stent, otherwise nonobstructive CAD. Currently, patient resting comfortably. Telemetry reveals frequent PVCs, and ventricular bigeminy. 6 beat run of nonsustained VT. intermittently aware of his PVCs described as skipped beats and forceful heartbeats. Denies lightheadedness, dizziness, syncope, or near syncope. ZIO monitor performed August 2024 demonstrating frequent PVCs (23% burden) and rare salvos of ventricular tachycardia. Most recent echocardiogram from June 2023 demonstrates mild reduced LV systolic function with a basal posterior and lateral scar, calculated left ventricular ejection fraction 48%. Cardiac/ Medical history (copied from [facility] record): 1.Coronary artery disease a. History of NSTEMI and CATH showed single-vessel disease with 95-99% thrombotic occlusion of the circumflex successful treated with X1 KATHRYN (2.5 x 28 mm Xience) in 06/2014 BESSY Waldron at [facility] b. CATH (07/24/20) with patent left circumflex stent and mild nonobstructive coronary artery disease 2. Non-ischemic cardiomyopathy a. LVEF 35% (06/2020) b. LVEF 45-49% (ECHO 11/2020) c. LVEF 52% (ECHO 04/2022) 3. Chronic HFrEF, NYHA Class II 4. HLD 5. Severe COPD with history of tobacco use (Followed by pulmonary medicine) 6. Asymptomatic sinus bradycardia Allergies Allergy/AdvReac Type Severity Reaction Status Date / Time No Known Allergies Allergy Verified 11/30/21 10:54 Home Medications Medication Instructions Recorded Confirmed Type albuterol 90 mcg/actuation aerosol 2 mcg inhalation Q6H PRN Wheezing 07/24/20 11/30/21 History inhaler atorvastatin 80 mg tablet 80 mg PO QAM 07/24/20 11/30/21 History nitroglycerin 0.4 mg sublingual 0.4 mg sublingual DIRECTED PRN 07/24/20 11/30/21 History tablet Chest Pain aspirin 81 mg tablet,delayed 81 mg PO QAM 11/26/21 11/30/21 History release escitalopram oxalate 10 mg tablet 10 mg PO QAM 11/26/21 11/30/21 History (Lexapro) famotidine 20 mg tablet 20 mg PO DAILY PRN Acid Reflux 11/26/21 11/30/21 History fluticasone 250 mcg-salmeterol 50 1 inh inhalation BID 11/26/21 11/30/21 History mcg/dose blistr powdr for inhalation (Advair Diskus) lisinopril 2.5 mg tablet 2.5 mg PO QAM 11/26/21 11/30/21 History oxycodone-acetaminophen 5 mg-325 1 tab PO Q6H PRN pain #10 tabs 12/01/21 Rx mg tablet budesonide 160 mcg-glycopyr 9 1 inh inhalation UD 11/19/24 History mcg-formot 4.8 mcg/actuation HFA inhaler (Breztri Aerosphere) doxycycline hyclate 100 mg tablet 100 mg PO BID 11/19/24 History ipratropium 0.5 mg-albuterol 3 mg 3 ml inhalation UD PRN sob 11/19/24 History (2.5 mg base)/3 mL nebulization soln ipratropium 20 mcg-albuterol 100 1 puff inhalation UD 11/19/24 History mcg/actuation mist for inhalation (Combivent Respimat) metoprolol succinate 25 mg 12.5 mg PO DAILY 11/19/24 History tablet,extended release 24 hr prednisone 50 mg tablet 50 mg PO UD 11/19/24 History tiotropium bromide 18 mcg capsule 18 mcg inhalation UD 11/19/24 History with inhalation device (Spiriva with HandiHaler) Patient History Medical History PFO with atrial septal aneurysm Bradycardia Heart failure with reduced ejection fraction EF 35% improved to 45-59% 11/2020 Nonischemic cardiomyopathy follows with [facility] cardiology GERD (gastroesophageal reflux disease) History of hepatitis C Emphysema, unspecified Encounter for pre-operative examination CAD (coronary artery disease) s/p Cx KATHRYN 2014 Hypertension Hyperlipidemia Acid reflux Depression Heart attack 2016 > stents placed at [facility] Chronic obstructive pulmonary disease res inh few times per week, depends on weather Surgical History Hx of inguinal hernia repair bilat as child History of colonoscopy History of cataract surgery bilat History of cardiac cath multiple Social History Smoking Status: Former smoker (44 pack years) Second Hand Exposure: No; Do You Dip or Chew Tobacco: No; Hx Alcohol Use: No Hx Substance Use: No Preferred Language: Canadian Communication Ability: Effective Transfer Table Operator Required: No Beliefs That Will Affect Care: None Current Living Situation: Spouse Feels Safe at Home: Yes Safety Concerns: Feels Safe At This Time Assistive Devices: None Review of Systems Review of Systems: All systems reviewed & are unremarkable except as noted in Subjective Physical Exam Constitutional: well nourished and + ill appearing; no acute distress Respiratory: no respiratory distress and no labored breathing Auscultation: + wheezes (B/L expiratory); no rales and no rhonchi Cardiovascular: Rate/Rhythm: regular rate, regular rhythm and + bradycardic (frequent ectopy) Heart Sounds: normal S1 and normal S2; no murmur Vessels: femoral pulses present and radial pulses present; no JVD and no carotid bruit Extremities: + edema (Trace bilateral ankle edema) Gastrointestinal (Abdomen): Inspection/Auscultation: abdomen normal to inspection and normal bowel sounds; abdomen not distended Percussion/Palpation: abdomen soft; abdomen nontender, no guarding and abdomen not rigid Neurologic: CN's II-XI intact bilaterally and moves all extremities; no focal motor deficits Results & Data Vital Signs (Past 12 Hours) Vital Signs Temp Pulse Pulse Resp BP BP Pulse Ox 11/19/24 13:03 93 11/19/24 13:03 93 11/19/24 13:03 63 16 149/85 H 93 11/19/24 12:30 36.8 C 47 L 20 136/61 94 O2 Del Method 11/19/24 13:03 Room Air 11/19/24 13:03 Room Air 11/19/24 13:03 Room Air 11/19/24 12:30 Room Air Laboratory Results Cardiac Enzymes 11/19/24 Range/Units 12:51 AST 22 (13-39) U/L Troponin I High Sens 11.9 (0-20) pg/ml Coagulation 11/19/24 Range/Units 12:51 PT 10.1 (9.0-12.0) Seconds APTT 24 (21-31) Seconds CBC 11/19/24 Range/Units 12:51 WBC 9.94 (4.8-10.8) K/ul RBC 4.37 L (4.70-6.10) M/uL Hgb 13.5 L (14.0-18.0) g/dl Hct 40.6 L (42.0-52.0) % Plt Count 189 (130-400) K/uL Neut # (Auto) 7.70 H (1.40-6.50) K/uL Lymph # (Auto) 1.21 (1.20-3.40) K/uL [place] # (Auto) 0.49 (0.11-0.59) K/uL Eos # (Auto) 0.05 (0.00-0.50) K/uL Baso # (Auto) 0.07 (0.00-0.20) K/uL Comprehensive Metabolic Panel 11/19/24 Range/Units 12:51 Sodium 139 (136-145) mmol/L Potassium 4.5 (3.5-5.1) mmol/L Chloride 105 (98-107) mmol/L Carbon Dioxide 29 (21-32) mmol/L BUN 39 H (6-23) mg/dl Creatinine 1.10 (0.6-1.4) mg/dl Glucose 125 H (70-99(Fasting)) mg/dl Calcium 8.7 (8.6-10.3) mg/dl AST 22 (13-39) U/L ALT 28 (7-52) U/L Alkaline Phosphatase 57 (34-104) U/L Total Protein 6.9 (6.0-8.3) gm/dl Albumin 3.9 (3.4-5.0) gm/dl Intake and Output 11/18/24 11/19/24 11/19/24 22:59 06:59 14:59 Other: Weight 101.9 kg Patient Weight 11/20/24 06:59 Weight 101.9 kg PG Care Time/CCT Total # of Minutes Spent Total Time Spent with Patient: Total time spent is greater than 50% in coordination of care (as documented) at patient's floor/unit and/or counseling patient: Coding Level of Care Code 79680 INT INP/OBS CARE 3/75MIN Diagnoses Coronary artery disease of [place] artery of [place] heart with stable angina pectoris I25.118 Coronary Disease-Associated Artery/Lesion type: [place] artery [place] vs. transplanted heart: [place] heart Associated angina: with stable angina Stable angina pectoris I20.89 Ischemic chest pain type: stable angina pectoris Chest pain type: chest pain due to myocardial ischemia Frequent PVCs I49.3 NSVT (nonsustained ventricular tachycardia) I47.29 Nonischemic cardiomyopathy I42.8 COPD, severe J44.9 (1) CAD (coronary artery disease) Coronary Disease-Associated Artery/Lesion type: [place] artery [place] vs. transplanted heart: [place] heart Associated angina: with stable angina Qualified Code(s): I25.118 - Atherosclerotic heart disease of [place] coronary artery with other forms of angina pectoris (2) Chest pain Ischemic chest pain type: stable angina pectoris Chest pain type: chest pain due to myocardial ischemia Qualified Code(s): I20.89 - Other forms of angina pectoris
--- NOTE | 2024-11-19 14:26 | Pre Anesthesia Assessment ---
Date of Service November 19, 2024 Pre Sedation Assessment Vital Signs Temp Pulse Pulse Resp BP BP Pulse Ox 11/19/24 14:26 65 18 140/86 93 11/19/24 14:19 65 11/19/24 13:03 93 11/19/24 13:03 93 11/19/24 13:03 63 16 149/85 H 93 11/19/24 12:30 36.8 C 47 L 20 136/61 94 O2 Del Method 11/19/24 14:26 Room Air 11/19/24 14:19 11/19/24 13:03 Room Air 11/19/24 13:03 Room Air 11/19/24 13:03 Room Air 11/19/24 12:30 Room Air Cardiovascular + regular rate, + regular rhythm and + bradycardic (Frequent ectopy) + S1 normal and + S2 normal; no murmur + femoral pulses present and + radial pulses present; no JVD + edema (Trace bilateral pedal and ankle) Respiratory no respiratory distress and no labored breathing + diminished lung sounds (Bilateral) and + wheezes (End expiratory, bilateral) Pre-Sedation Airway Assessment Smoking Status: Former smoker (44 pack years) Hx Sleep Apnea: No Hx Difficult Intubation: No Short, Thick Neck: No Thyromental Distance: < 3.5 Finger Breadths Mallampati Class: III ASA: ASA3 NPO Status Time of Last Intake of Fluids: 08:00 Time of Last Intake of Solid Foods: 08:00 Procedure Planning Contraindications for Sedation: none Current Medications Reviewed: Yes Notes The planned sedation has been discussed with the patient. Informed Consent was obtained. I have identified the patient, determined the appropriateness of sedation and have assessed the patient immediately prior to the procedure. All medicine(s) and interventions are by my order.
[2024-11-19 14:34] LABS: Magnesium 2.0 mg/dl (1.7-2.4)
[2024-11-19 14:49] LABS: Thyroid Stimulating Hormone 0.941 uIu/ml (0.300-4.500)
[2024-11-19] MEDS: NITROGLYCERIN/D5W 100MCG/ML 20ML SYR ONE (14:54)
[2024-11-19] MEDS: niCARdipine 2,000 MCG/20 ML SYR ONE (14:54)
--- NOTE | 2024-11-19 15:04 | History & Physical Report ---
Date of Service November 19, 2024 Assessment & Plan (1) CAD (coronary artery disease): (2) Heart failure with reduced ejection fraction: (3) COPD, severe: (4) GERD (gastroesophageal reflux disease): (5) Nocturnal hypoxia: (6) Depression: Plan 69 year old male with PMH significant for NSTEMI and occlusion of left circumflex s/p stent (2014), mild nonobstructive CAD with patent stent (2020), non-ischemic cardiomyopathy, chronic HFrEF, hyperlipidemia, severe COPD, asympto matic sinus bradycardia who presented to the ED on 11/19/2024 referred by his outpatient Oracle E Business Developer for chest pain and emergent cardiac catheterization. CAD Patient presenting with intermittent chest pain, HEBERT, nausea for a few days Admitting EKG revealed no signs of ischemia Troponin negative s/p cardiac catheterization with Dr. Valadez which revealed nonobstructive CAD, 40% mid left circumflex, mild LAD bridging without obstruction Recommend GDMT including continue baby aspirin, atorvastatin, metoprolol, and lisinopril Also recommends diuretic therapy and EP consultation for ventricular ectopy/NSVT NPO at midnight per Dr. 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 Please see addendum. I spent a total of 70 minutes coordinating, documenting and providing care for this patient excluding time spent in the performance of separately billed services or time spent by another provider/QHP. Admission and Anticipated Discharge Date Admission Date: 11/19/2024 History of Present Illness Chief Complaint: chest pain Primary Care Provider: Pao Boswell DO 69 year old male with PMH significant for NSTEMI and occlusion of left circumflex s/p stent (2014), mild nonobstructive CAD with patent stent (2020), non-ischemic cardiomyopathy, chronic HFrEF, hyperlipidemia, severe COPD, asymptomatic sinus bradycardia who presented to the ED on 11/19/2024 referred by his outpatient [employer] Business Developer for chest pain and emergent cardiac catheterization. Patient reports he was experiencing intermittent chest pain, HEBERT, nausea, and palpitations with activity for a few days. He was seen at [facility] ER but symptoms were thought to be from COPD and he was discharged with doxycycline and prednisone. He was seen in his inpatient room after cardiac catheterization and reports that he is not having chest pain, SOB, or nausea. He is eating dinner and feels better. Denies dizziness, lightheadedness, abdominal pain. Allergies Allergy/AdvReac Type Severity Reaction Status Date / Time No Known Allergies Allergy Verified 11/30/21 10:54 Home Medications Medication Instructions Recorded Confirmed Type albuterol 90 mcg/actuation aerosol 2 mcg inhalation Q6H PRN Wheezing 07/24/20 11/19/24 History inhaler atorvastatin 80 mg tablet 80 mg PO QAM 07/24/20 11/19/24 History nitroglycerin 0.4 mg sublingual 0.4 mg sublingual DIRECTED PRN 07/24/20 11/19/24 History tablet Chest Pain aspirin 81 mg tablet,delayed 81 mg PO QAM 11/26/21 11/19/24 History release escitalopram oxalate 10 mg tablet 10 mg PO QAM 11/26/21 11/19/24 History (Lexapro) famotidine 20 mg tablet 20 mg PO DAILY PRN Acid Reflux 11/26/21 11/19/24 History lisinopril 2.5 mg tablet 2.5 mg PO QAM 11/26/21 11/19/24 History budesonide 160 mcg-glycopyr 9 1 inh inhalation UD 11/19/24 11/19/24 History mcg-formot 4.8 mcg/actuation HFA inhaler (Breztri Aerosphere) doxycycline hyclate 100 mg tablet 100 mg PO BID 11/19/24 11/19/24 History ipratropium 0.5 mg-albuterol 3 mg 3 ml inhalation UD PRN sob 11/19/24 11/19/24 History (2.5 mg base)/3 mL nebulization soln ipratropium 20 mcg-albuterol 100 1 puff inhalation UD 11/19/24 11/19/24 History mcg/actuation mist for inhalation (Combivent Respimat) metoprolol succinate 25 mg 12.5 mg PO DAILY 11/19/24 11/19/24 History tablet,extended release 24 hr Past Med/Surg History Problem List (Updated 11/19/24 @ 18:28 by KHADRA Ramirez) Nocturnal hypoxia Nonischemic cardiomyopathy follows with [facility] [place] cardiology COPD, severe NSVT (nonsustained ventricular tachycardia) Frequent PVCs Chest pain GERD (gastroesophageal reflux disease) Dyslipidemia CAD (coronary artery disease) Inguinal hernia Medical History PFO with atrial septal aneurysm Bradycardia Heart failure with reduced ejection fraction EF 35% improved to 45-59% 11/2020 Nonischemic cardiomyopathy follows with [facility] [place] cardiology GERD (gastroesophageal reflux disease) History of hepatitis C Emphysema, unspecified Encounter for pre-operative examination CAD (coronary artery disease) s/p Cx KATHRYN 2014 Hypertension Hyperlipidemia Acid reflux Depression Heart attack 2016 > stents placed at [facility] Chronic obstructive pulmonary disease res inh few times per week, depends on weather Surgical History Hx of inguinal hernia repair bilat as child History of colonoscopy History of cataract surgery bilat History of cardiac cath multiple Social History Smoking Status: Former smoker (44 pack years) Second Hand Exposure: No; Do You Dip or Chew Tobacco: No; Hx Alcohol Use: No Hx Substance Use: No Preferred Language: Croatian Communication Ability: Effective Steam And Gas Turbine Assembler Required: No Beliefs That Will Affect Care: None Current Living Situation: Spouse Feels Safe at Home: Yes Safety Concerns: Feels Safe At This Time Assistive Devices: None Review of Systems Review of Systems: All systems reviewed & are unremarkable except as noted in HPI & below Physical Exam Physical Exam: General/Psych: WD/WN, sitting up in bed, NAD, conversing easily Head: normocephalic, atraumatic Eyes: normal inspection, PERRL, conjunctivae pink ENT: external ear and nose normal, oropharynx normal Neck: normal visual inspection, trachea midline Respiratory: normal respiratory effort, lungs clear to auscultation, no wheeze/rales/rhonchi, no accessory muscle use Cardiovascular: regular rate and rhythm, no murmur/rub/gallop, no JVD Extremities: no cyanosis or clubbing, normal peripheral pulses, no BLE edema, right radial band in place without bleeding Abdomen/GI: normal bowel sounds, soft, nontender Neurologic/MSK: A+Ox3, motor strength 5/5, moves all extremities Skin: no rashes, normal color, warm and dry Results & Data Results & Data Vital Signs (Past 12 Hours) Vital Signs Temp Pulse Pulse Resp BP BP Pulse Ox 11/19/24 14:26 65 18 140/86 93 11/19/24 14:19 65 11/19/24 13:03 93 11/19/24 13:03 93 11/19/24 13:03 63 16 149/85 H 93 11/19/24 12:30 36.8 C 47 L 20 136/61 94 O2 Del Method 11/19/24 14:26 Room Air 11/19/24 14:19 11/19/24 13:03 Room Air 11/19/24 13:03 Room Air 11/19/24 13:03 Room Air 11/19/24 12:30 Room Air Laboratory Results Short CBC 11/19/24 Range/Units 12:51 WBC 9.94 (4.8-10.8) K/ul Hgb 13.5 L (14.0-18.0) g/dl Hct 40.6 L (42.0-52.0) % Plt Count 189 (130-400) K/uL BMP 11/19/24 12:51 Sodium 139 Potassium 4.5 Chloride 105 Carbon Dioxide 29 BUN 39 H Creatinine 1.10 Glucose 125 H Calcium 8.7 Liver Function 11/19/24 Range/Units 12:51 Total Bilirubin 0.5 (0.2-1.0) mg/dl AST 22 (13-39) U/L ALT 28 (7-52) U/L Alkaline Phosphatase 57 (34-104) U/L Albumin 3.9 (3.4-5.0) gm/dl I have independently reviewed and interpreted patient's admitting labs including CBC, CMP, PTT, PT/INR, mag and troponin, TSH Diagnostic Findings Chest X-Ray 11/19/24 12:36 XR chest 1V not portable CLINICAL HISTORY: Chest pain, nonspecific COMPARISON STUDY: 09/28/2018 FINDINGS: There is mild cardiomegaly with mild pulmonary vascular congestion. No consolidation or pleural effusion. No pneumothorax. IMPRESSION: Mild CHF. ACT 112: Negative or not required by law. Electronically signed by: Lee Woods M.D. 11/19/2024 1:01 PM Code Status & VTE Plan Code Status Full Code Supervising Physician Co-Signing Physician Notes Attending addendum: The patient was seen and examined in telemetry unit in presence of the He was admitted with chest pain and underwent cardiac cath which did not show any significant CAD and contemplated for medical management to continue He does not have any more chest pain and no palpitations following the procedure and denies any other significant symptoms On examination Lying in bed without any acute distress Remains hemodynamically stable with blood pressure at 145/66 Chest was clear to auscultate bilaterally HeartS1-S2, regular Abdomenbenign Extremitiesno edema His admission labs, EKG and imaging studies reviewed Chest pain status post cardiac cath with nonobstructive CAD and opted for medical management He will have electrophysiologic consultation for ongoing ventricular ectopy and nonsustained VT His other significant medical conditions remained stable as mentioned above Agree with assessment and plan as outlined above by Danielle in [facility] and take the full responsibility of care in the hospital DR Raymond Sanchez (1) CAD (coronary artery disease) Coronary Disease-Associated Artery/Lesion type: [place] artery [place] vs. transplanted heart: [place] heart Associated angina: with stable angina Qualified Code(s): I25.118 - Atherosclerotic heart disease of [place] coronary artery with other forms of angina pectoris
[2024-11-19] MEDS: OPTIRAY 350 ONE (15:25)
[2024-11-19] MEDS: MIDAZOLAM HCL 1 MG/ML 2ML VIAL ONE (15:25)
[2024-11-19] MEDS: HEPARIN (PORCINE) 1000 UNIT/ML 10 ML (CATH LAB USE ONLY) ONE (15:26)
--- NOTE | 2024-11-19 15:30 | Post Anesthesia Assessment ---
Date of Service November 19, 2024 Post Sedation Assessment Vital Signs Temp Pulse Pulse Resp BP BP Pulse Ox 11/19/24 14:26 65 18 140/86 93 11/19/24 14:19 65 11/19/24 13:03 93 11/19/24 13:03 93 11/19/24 13:03 63 16 149/85 H 93 11/19/24 12:30 36.8 C 47 L 20 136/61 94 O2 Del Method 11/19/24 14:26 Room Air 11/19/24 14:19 11/19/24 13:03 Room Air 11/19/24 13:03 Room Air 11/19/24 13:03 Room Air 11/19/24 12:30 Room Air Recovery Score Activity: Moves 4 extremities Respiration: Deep Breath/Cough Circulation: +/-20% PreAnes Value Consciousness: Arouseable (by name) Oxygen Saturation: O2 needed for >90% Discharge Sedation Level of Care: Fast Track Phase II Post Sedation Plan On clinical assessment, the patient appears to have tolerated the sedation without complications. Patient is recovering as anticipated. Patient will continue to be monitored by nursing and may be discharged when sedation discharge criteria are met per below protocol. Upon Completions of procedure up to 15 minutes continue every 5 minute vital signs and the P.A.R. score; then discharge to a Phase I or Fast Track to Phase II per the following guidelines: * Discharge Patient to appropriate Phase II area if PAR is 8 or greater or return to pre- procedure baseline. The post - procedure orders will be as directed. * If PAR score is less than 8 or not return to pre-procedure baseline then patient will follow Phase I monitoring till PAR is reached for Phase II. The Phase I may be done in procedure room or may call to secure a Phase I area. * If naloxone or flumazenil are used for reversal, hold in Phase I for continued monitoring from when last reversal dose was given for a minimum of 60 minutes or longer pending the nurse and/or physician discretion of patient condition before discharge to Phase II. Please call the Sedation Physician to re-evaluate and complete post-note for discharge to Phase II area. Do NOT discharge from procedure sedation or Phase 1 until post- sedation evaluation note is complete by procedure /sedation MD Sedation Discharge Instructions to be given to the patient at discharge to home.
--- NOTE | 2024-11-19 15:42 | Cardiac Catheterization ---
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 Zio evidence of nonsustained ventricular tachycardia and frequent PVCs. CAD Presenation: Stable angina Anginal Classification: CCS III Heart Failure: NYHA Class: CCS III Coronary Anatomy Dominant: Right Left Main (% Stenosis): Normal LAD (% Stenosis): Proximal (30% distal to D1 ostia) and Mid (Diffuse area of bridging with associated 30% stenosis) D1 (% Stenosis): Normal Circumflex (% Stenosis): Mid (40% distal to the origin of OM1) OM1 (% Stenosis): Proximal (Patent stent with 10% ISR) OM2 (% Stenosis): Normal (small vessel) RCA (% Stenosis): Proximal (20%) and Mid (Luminal irregularities, 10%) R PDA (% Stenosis): Normal R PL1 (% Stenosis): Normal (Small vessel) R PL2 (% Stenosis): Normal (Large vessel) Ramus (% Stenosis): Normal (small vessel) Diagnostic Physicians Name: Jarvis Valadez DO Closure Device Percutaneous Entry Location: Radial Closure Device: Radial Band Recommendations: Medical Therapy and/or Counseling and Management Recommendatons (And diuretic therapy, electrophysiology consultation for ventricular ectopy, nonsustained ventricular tachycardia) Intraprocedure Events Significant Disection: No Perforation: No Cardiac Cath Procedure Full Procedure Date November 19, 2024 Pre-Procedure Diagnosis Pre-Procedure Diagnosis: Angina, CAD, Cardiomyopathy (Mildly reduced LV systolic function) and Arrhythmia (Frequent PVCs, nonsustained ventricular tachycardia.) AUC Score AUC Score: 7 Post-Procedure Diagnosis Post-Procedure Diagnosis: Moderate CAD and Elevated Intracardiac Pressures (LVEDP 21mmHg) Procedure(s) Performed Procedure(s) Performed: Coronary Angiography and Left Heart Cath Mechanical Engineer Jarvis Valadez DO Tax Collection Coordinator(s) Jensenenhoff RTR Estimated Blood Loss Estimated Blood Loss: 5cc Medication(s) Medication(s): Fentanyl, Heparin, Lidocaine 1%, Nicardipine, Nitroglycerin and Versed Summary of Findings Nonobstructive coronary artery disease. 40% mid left circumflex distal to the origin of large OM1. Mid LAD bridging without obstruction. Hemodynamics Rest Ao:: 113/65/88 Final Ao: 131/65/85 LV: 123/17/21 Recommendations Recommendations: Medical Therapy and/or Counseling and Management Recommendatons (And diuretic therapy, electrophysiology consultation for ventricular ectopy, nonsustained ventricular tachycardia) Radiation Exposure (mGy) 1746 Contrast (mls) 50 Fluids (cc crystalloids) Fluids (cc crystalloids): 0cc Drains Drains: N/A Anesthesia Moderate sedation. Start 1501. End 1524. Sedation monitor: Chhaya BRASHER Procedural Complication(s) None Disposition Nursery Worker Holding/Recovery I attest to the content of the Intraoperative Record and any orders documented therein. Any exceptions are noted below. [facility] Card Cath Procedure Codes Cardiac Catheterization Procedure 1: Cardiovascular Cath Procedures: 97499 Coronaries and LHC (+/-LV) Moderate Sedation Procedure 1: Sedation/Anesthesia: 27520 Mod Sedation by the same physician;Init15 Min Child Age 5 & Up Procedure 2: Sedation/Anesthesia: 42656 Mod Sedation by the same physician; Ea [id number] Minutes PG Care Time/CCT Total # of Minutes Spent Total Time Spent with Patient: Total time spent is greater than 50% in coordination of care (as documented) at patient's floor/unit and/or counseling patient:
[2024-11-19] MEDS ORDERED: ALBUT/IPRATROP 3MG/0.5MG NEB 3 ML VIAL INH PRN (17:39)
[2024-11-19] MEDS ORDERED: ALBUTEROL HFA 8 GM INHALER INH PRN (17:39)
[2024-11-19] MEDS ORDERED: FAMOTIDINE 20 MG TAB PO PRN (17:39)
[2024-11-19] MEDS ORDERED: IPRATROPIUM BROMIDE/ALBUTEROL respimat INH INH SCH (17:45)
[2024-11-19] MEDS ORDERED: NON-FORMULARY MEDICATION (Budesonide-Glycopyr-Formoterol [Breztri Aerosphere] 160-9-4.8 mc INH SCH (17:45)
[2024-11-19] MEDS ORDERED: IPRATROPIUM BROMIDE NEB SOLN 0.02% 0.5MG/2.5ML VIAL NEB PRN (18:53)
[2024-11-19] MEDS ORDERED: ALBUTEROL 0.5% NEB SOLN 2.5 MG/0.5 ML VIAL NEB PRN (18:53)
[2024-11-19] MEDS: DOXYCYCLINE HYCLATE 100 MG CAP PO SCH (20:09)
[2024-11-19] MEDS: Ipratropium HFA Inhaler (Combivent Respimat P&T Subs) INH SCH (21:08)
[2024-11-19] MEDS: Albuterol HFA 8 GM Inhaler (Combivent Respimat P&T Subs) INH SCH (21:09)
[2024-11-20 07:47] VITALS: RESP 20; TEMP 97.7; O2SAT 94
[2024-11-20] MEDS: FLUTICASONE FUROATE 200MCG 14 PUFFS/INHALER INH SCH (09:07)
[2024-11-20] MEDS: ESCITALOPRAM OXALATE 10 MG TAB PO SCH (09:07)
[2024-11-20] MEDS: ASPIRIN 81 MG ECTAB PO SCH (09:07)
[2024-11-20] MEDS: ATORVASTATIN 40 MG TAB PO SCH (09:07)
[2024-11-20] MEDS: FUROSEMIDE 20 MG TAB PO SCH (09:08)
[2024-11-20] MEDS: METOPROLOL SUCC 25MG EXT REL TAB PO SCH (09:08)
[2024-11-20] MEDS: UMECLIDINIUM/VILANTEROL 62.5/25MCG 7 PUFFS/INHALER INH SCH (09:09)
--- NOTE | 2024-11-20 09:15 | Cardiology Progress Note ---
Date of Service November 20, 2024 Assessment & Plan (1) CAD (coronary artery disease): (2) Chest pain: (3) Frequent PVCs: (4) NSVT (nonsustained ventricular tachycardia): (5) COPD, severe: (6) Acute heart failure with mildly reduced ejection fraction (HFmrEF, 41-49%): (7) Cardiomyopathy: Plan 69-year-old male status postcardiac catheterization demonstrating nonobstructive coronary disease. Mixed ischemic/non-ST cardiomyopathy with mild LV systolic dysfunction per echocardiogram. Elevated left ventricular end-diastolic pressure noted. Frequent PVCs and nonsustained ventricular tachycardia on telemetry with mildly reduced LV systolic function. Treatment limited by resting sinus bradycardia. Optimize GDMT. Lasix 20 mg daily added due to elevated left ventricular end-diastolic pressure. Titrate Toprol-XL to 25 mg daily. Transition lisinopril to Entresto. Hold lisinopril starting tomorrow (received a.m. dose today 11/20/2024) Patient may begin Entresto , 11/22/2024. Repeat basic metabolic panel 1 week after initiation of therapy. Consider addition of Aldactone as outpatient. Discussed potential need for pacemaker implantation to allow for titration of beta-priscilla therapy, and possible overdrive pacing to reduce frequency of PVCs. Patient is not a strong candidate for amiodarone due to underlying pulmonary disease. EP consultation scheduled Tuesday11/23/2024. Jarvis Valadez DO [facility] I spent a total of 55 minutes on the date of service in preparation, delivery, and documentation of the care provided to this patient, excluding any time spent in the performance of separately billed services. Admission and Anticipated Discharge Date Admission Date: November 19, 2024 Subjective 69-year-old male seen and examined at the bedside. Presented from the office 11/19/2024 with concerns regarding chest discomfort and recent ER evaluation. Cardiac catheterization performed 11/19/2024 demonstrating nonobstructive coronary disease with patent left circumflex stent. Elevated left ventricular end-diastolic pressure. Review of Systems Review of Systems: All systems reviewed & are unremarkable except as noted in Subjective Physical Exam Constitutional: well nourished and + ill appearing; no acute distress ENMT: Mallampati Class: III Respiratory: no respiratory distress and no labored breathing Auscultation: + diminished lung sounds (Bilateral) and + wheezes (End expiratory, bilateral); no rales and no rhonchi Cardiovascular: Rate/Rhythm: regular rate, regular rhythm and + bradycardic (Frequent ectopy) Heart Sounds: normal S1 and normal S2; no murmur Vessels: femoral pulses present and radial pulses present; no JVD and no carotid bruit Extremities: + edema (Trace bilateral pedal and ankle) Gastrointestinal (Abdomen): Inspection/Auscultation: abdomen normal to inspection and normal bowel sounds; abdomen not distended Percussion/P alpation: abdomen soft; abdomen nontender, no guarding and abdomen not rigid Neurologic: CN's II-XI intact bilaterally and moves all extremities; no focal motor deficits Results & Data Vital Signs (Past 12 Hours) Vital Signs Temp Pulse Pulse Resp BP Pulse Ox O2 Del Method 11/20/24 07:46 36.5 C 43 L 20 134/66 94 Room Air 11/20/24 02:35 36.6 C 74 18 139/55 L 96 Room Air 11/19/24 23:12 70 11/19/24 22:00 36.5 C 73 18 147/76 H 94 Room Air PG Care Time/CCT Total # of Minutes Spent Total Time Spent with Patient: Total time spent is greater than 50% in coordination of care (as documented) at patient's floor/unit and/or counseling patient: Coding Level of Care Code 71243 SUB INP/OBS CARE 3/50MIN Diagnoses Coronary artery disease of [place] artery of [place] heart with stable angina pectoris I25.118 Associated angina: with stable angina Coronary Disease-Associated Artery/Lesion type: [place] artery [place] vs. transplanted heart: [place] heart Stable angina pectoris I20.89 Chest pain type: chest pain due to myocardial ischemia Ischemic chest pain type: stable angina pectoris Frequent PVCs I49.3 NSVT (nonsustained ventricular tachycardia) I47.29 COPD, severe J44.9 Acute heart failure with mildly reduced ejection fraction (HFmrEF, 41-49%) I50.21 Cardiomyopathy, unspecified type I42.9 Cardiomyopathy type: unspecified (1) CAD (coronary artery disease) Associated angina: with stable angina Coronary Disease-Associated Artery/Lesion type: [place] artery [place] vs. transplanted heart: [place] heart Qualified Code(s): I25.118 - Atherosclerotic heart disease of [place] coronary artery with other forms of angina pectoris (2) Chest pain Chest pain type: chest pain due to myocardial ischemia Ischemic chest pain type: stable angina pectoris Qualified Code(s): I20.89 - Other forms of angina pectoris (7) Cardiomyopathy Cardiomyopathy type: unspecified Qualified Code(s): I42.9 - Cardiomyopathy, unspecified
[2024-11-20 12:24] VITALS: BP 126/64; PULSE 64
[2024-11-20] MEDS: METOPROLOL SUCC 50MG EXT REL TAB PO STA (12:40)
--- NOTE | 2024-11-20 13:20 | Hospitalist Progress Note ---
Date of Service November 20, 2024 Assessment & Plan (1) CAD (coronary artery disease): (2) Heart failure with reduced ejection fraction: (3) COPD, severe: (4) GERD (gastroesophageal reflux disease): (5) Nocturnal hypoxia: (6) Depression: Plan 69 year old male with PMH significant for NSTEMI and occlusion of left circumflex s/p stent (2014), mild nonobstructive CAD with patent stent (2020), non-ischemic cardiomyopathy, chronic HFrEF, hyperlipidemia, severe COPD, asymp tomatic sinus bradycardia who presented to the ED on 11/19/2024 referred by his outpatient Precise Winder for chest pain and emergent cardiac catheterization. CAD Patient presenting with intermittent chest pain, HEBERT, nausea for a few days Admitting EKG revealed no signs of ischemia Troponin negative s/p cardiac catheterization with Dr. Valadez which revealed nonobstructive CAD, 40% mid left circumflex, mild LAD bridging without obstruction Also recommends diuretic therapy - furosemide 20 mg daily Recommend GDMT including continue baby aspirin, atorvastatin, metoprolol (increased dose to 25 mg daily). Stop lisinopril, plan to start Entresto on (11/22). EP consultation for ventricular ectopy/NSVT Per cardiology - Repeat basic metabolic panel 1 week after initiation of therapy. Consider addition of Aldactone as outpatient. Discussed potential need for pacemaker implantation to allow for titration of beta-priscilla therapy, and possible overdrive pacing to reduce frequency of PVCs. Patient is not a strong candidate for amiodarone due to underlying pulmonary disease. EP consultation scheduled Tuesday11/23/2024. HFrEF Follows with Cardiology outpatient Echo in June 2023 revealed LVEF 48%, mild MR, mild TR Monitor weight and I&Os Meds adjusted as above Hypertension on metoprolol, lisinopril -> stop lisinopril on DC, plan to switch to Entresto Severe COPD Follows with Pulmonary outpatient Continue inhalers Nocturnal hypoxia Continue 2L O2 at HS per home regimen Depression Continue lexapro GERD Continue famotidine PRN Code Status: FULL CODE PCP: Pao Boswell Admission and Anticipated Discharge Date Admission Date: November 19, 2024 Subjective Pt seen in follow up of chest pain s/p cardiac cath yesterday (right radial access without any erythema or tenderness) Pt is currently lying in bed in NAD, denies any chest pain or palpitations Also denies any fever, chills, shortness of breath, but he has had some cough for some time No abd. pain, n/v Discussed pt will need EP eval as well Review of Systems Review of Systems: All systems reviewed & are unremarkable except as noted in Subjective Physical Exam Physical Exam: General/Psych: WD/WN, sitting up in bed, in NAD Head: normocephalic, atraumatic Eyes: normal inspection, PERRL ENT: external ear and nose normal, oropharynx normal Neck: normal visual inspection Respiratory: normal respiratory effort, lungs clear to auscultation, no wheeze/rales/rhonchi, no accessory muscle use Cardiovascular: +bradycardic (ectopy) Extremities: no BLE edema, right radial band in place without bleeding Abdomen/GI: normal bowel sounds, soft, nontender Neurologic/MSK: A+Ox3, motor strength 5/5, moves all extremities Skin: no rashes, normal color, warm and dry Results & Data Results & Data Vital Signs (Past 12 Hours) Vital Signs Temp Pulse Pulse Resp BP Pulse Ox O2 Del Method 11/20/24 12:00 64 20 126/64 94 Room Air 11/20/24 09:33 Room Air 11/20/24 07:46 36.5 C 73 20 134/66 94 Room Air 11/20/24 07:38 63 11/20/24 02:35 36.6 C 74 18 139/55 L 96 Room Air Medications Administered Current Inpatient Medications Albuterol (Albuterol Hfa 8 Gm Inhaler) 2 puffs INH Q6H PRN PRN Reason: Wheezing Albuterol (Albuterol Hfa 8 Gm Inhaler (Combivent Respimat P&T Subs)) 1 puffs INH TIDR CARRIE; Protocol Stop: 12/19/24 18:59 Last Admin: 11/20/24 13:21 Dose: Not Given Albuterol (Albuterol 0.5% Neb Soln 2.5 Mg/0.5 Ml Vial) 2.5 mg NEB Q4H PRN PRN Reason: SHORTNESS OF BREATH Stop: 12/19/24 18:52 Aspirin (Aspirin 81 Mg Ectab) 81 [facility] [place] Stop: 12/20/24 08:59 Last Admin: 11/20/24 09:07 Dose: 81 mg Atorvastatin Calcium (Atorvastatin 40 Mg Tab) 80 mg PO QAM CARRIE Stop: 12/20/24 08:59 Last Admin: 11/20/24 09:07 Dose: 80 mg Doxycycline Hyclate (Doxycycline Hyclate 100 Mg Cap) 100 mg PO BID CARRIE Stop: 11/21/24 20:59 Last Admin: 11/20/24 09:07 Dose: 100 mg Escitalopram Oxalate (Escitalopram Oxalate 10 Mg Tab) 10 mg PO QAM CARRIE Stop: 12/20/24 08:59 Last Admin: 11/20/24 09:07 Dose: 10 mg Famotidine (Famotidine 20 Mg Tab) 20 mg PO DAILY PRN PRN Reason: Acid Reflux Stop: 12/19/24 17:38 Fluticasone Furoate (Fluticasone Furoate 200mcg 14 Puffs/Inhaler) 1 puffs INH DAILY CARRIE Stop: 12/20/24 08:59 Last Admin: 11/20/24 09:07 Dose: 1 puffs Furosemide (Furosemide 20 Mg Tab) 20 mg PO QAM CARRIE Stop: 12/20/24 08:59 Last Admin: 11/20/24 09:08 Dose: 20 mg Ipratropium [place] (Ipratropium Hfa Inhaler (Combivent Respimat P&T Subs)) 1 puffs INH TIDR CARRIE; Protocol Stop: 12/19/24 18:59 Last Admin: 11/20/24 13:21 Dose: Not Given Ipratropium [place] (Ipratropium [place] Neb Soln 0.02% 0.5mg/2.5ml Vial) 0.5 mg NEB Q4H PRN PRN Reason: SHORTNESS OF BREATH Stop: 12/19/24 18:52 Lisinopril (Lisinopril 2.5 Mg Tab) 2.5 mg PO QAM CARRIE Stop: 12/20/24 08:59 Last Admin: 11/20/24 09:08 Dose: 2.5 mg Metoprolol Succinate (Metoprolol Succ 25mg Ext Rel Tab) 25 mg PO DAILY CARRIE Stop: 12/21/24 08:59 Umeclidinium/Vilanterol (Umeclidinium/Vilanterol 62.5/25mcg 7 Puffs/Inhaler) 1 puffs INH DAILY CARRIE Stop: 12/20/24 08:59 Last Admin: 11/20/24 09:09 Dose: 1 puffs (1) CAD (coronary artery disease) Associated angina: with stable angina Coronary Disease-Associated Artery/Lesion type: [place] artery [place] vs. transplanted heart: [place] heart Qualified Code(s): I25.118 - Atherosclerotic heart disease of [place] coronary artery with other forms of angina pectoris
--- NOTE | 2024-11-20 16:02 | Discharge Summary ---
Date of Service November 20, 2024 Admission HPI Per Admitting Provider 69 year old male with PMH significant for NSTEMI and occlusion of left circumflex s/p stent (2014), mild nonobstructive CAD with patent stent (2020), non-ischemic cardiomyopathy, chronic HFrEF, hyperlipidemia, severe COPD, asymptomatic sinus bradycardia who presented to the ED on 11/19/2024 referred by his outpatient File System Installer for chest pain and emergent cardiac catheterization. Patient reports he was experiencing intermittent chest pain, HEBERT, nausea, and palpitations with activity for a few days. He was seen at [facility] ER but symptoms were thought to be from COPD and he was discharged with doxycycline and prednisone. He was seen in his inpatient room after cardiac catheterization and reports that he is not having chest pain, SOB, or nausea. He is eating dinner and feels better. Denies dizziness, lightheadedness, abdominal pain. Admission Exam Per Admitting Provider General/Psych: WD/WN, sitting up in bed, NAD, conversing easily Head: normocephalic, atraumatic Eyes: normal inspection, PERRL, conjunctivae pink ENT: external ear and nose normal, oropharynx normal Neck: normal visual inspection, trachea midline Respiratory: normal respiratory effort, lungs clear to auscultation, no wheeze/rales/rhonchi, no accessory muscle use Cardiovascular: regular rate and rhythm, no murmur/rub/gallop, no JVD Extremities: no cyanosis or clubbing, normal peripheral pulses, no BLE edema, right radial band in place without bleeding Abdomen/GI: normal bowel sounds, soft, nontender Neurologic/MSK: A+Ox3, motor strength 5/5, moves all extremities Skin: no rashes, normal color, warm and dry Principal Diagnosis Chest pain,CAD, Frequent PVCs Discharge Exam General/Psych: WD/WN, sitting up in bed, in NAD Head: normocephalic, atraumatic Eyes: normal inspection, PERRL ENT: external ear and nose normal, oropharynx normal Neck: normal visual inspection Respiratory: normal respiratory effort, lungs clear to auscultation, no wheeze/rales/rhonchi, no accessory muscle use Cardiovascular: +bradycardic (ectopy) Extremities: no BLE edema, right radial band in place without bleeding Abdomen/GI: normal bowel sounds, soft, nontender Neurologic/MSK: A+Ox3, motor strength 5/5, moves all extremities Skin: no rashes, normal color, warm and dry Discharge Data Allergies Allergy/AdvReac Type Severity Reaction Status Date / Time No Known Allergies Allergy Verified 11/30/21 10:54 Consultations 11/19/24 13:46 Consult Cardiology Stat ED Decision to Admit Stat Procedures Performed Operation Date: 11/19/24 14:00 Actual Procedures p Cineradiography w/Routine Exam - Jarvis Valadez DO p Cath, Left with Cors and Vent - Jarvis Valadez DO Ordered Studies 11/19/24 13:36 CL Cath Imgs for PACS use only Stat Hospital Course (1) CAD (coronary artery disease): (2) Heart failure with reduced ejection fraction: (3) COPD, severe: (4) GERD (gastroesophageal reflux disease): (5) Nocturnal hypoxia: (6) Depression: Plan 69 year old male with PMH significant for NSTEMI and occlusion of left circumflex s/p stent (2014), mild nonobstructive CAD with patent stent (2020), non-ischemic cardiomyopathy, chronic HFrEF, hyperlipidemia, severe COPD, asymptomatic sinus bradycardia who presented to the ED on 11/19/2024 referred by his outpatient File System Installer for chest pain and emergent cardiac catheterization. CAD Patient presenting with intermittent chest pain, HEBERT, nausea for a few days Admitting EKG revealed no signs of ischemia Troponin negative S/p cardiac catheterization with Dr. Valadez which revealed nonobstructive CAD, 40% mid left circumflex, mild LAD bridging without obstruction Per cardiology - recommends diuretic therapy - furosemide 20 mg daily Recommend GDMT including continue baby aspirin, atorvastatin, metoprolol (increased dose to 25 mg daily). Stop lisinopril, plan to start Entresto on (11/22). EP consultation for ventricular ectopy/NSVT Repeat basic metabolic panel 1 week after initiation of therapy. Consider addition of Aldactone as outpatient. Discussed potential need for pacemaker implantation to allow for titration of beta-priscilla therapy, and possible overdrive pacing to reduce frequency of PVCs. Patient is not a strong candidate for amiodarone due to underlying pulmonary disease. EP consultation scheduled Tuesday11/23/2024. HFrEF Follows with Cardiology outpatient Echo in June 2023 revealed LVEF 48%, mild MR, mild TR Monitor weight and I&Os Meds adjusted as above Hypertension on metoprolol, lisinopril -> stop lisinopril on DC, plan to switch to Entresto Severe COPD Follows with Pulmonary outpatient Continue inhalers Nocturnal hypoxia Continue 2L O2 at HS per home regimen Depression Continue lexapro GERD Continue famotidine PRN Code Status: FULL CODE PCP: Pao Boswell Total Time Total Time Spent Total Time Spent (In Minutes): 40 Discharge Plan Discharge Items Patient Disposition: Home - Self-Care Reason For Visit: CHEST PAIN Discharge Diagnosis: Chest pain,CAD, Frequent PVCs Condition on Discharge: Fair Activity: Per Instructions section Non-emergency contact: Primary Care Provider and File System Installer Call non-emergency contact if: you have any medication questions and your symptoms worsen Follow-up/Referrals: [facility],Medicine [Non-Staff] - Diet: Heart Healthy Addtl Attending Provider Instructions: Follow up with primary care doctor and senior oracle database developer. The appointment with senior oracle database developer/ automatic machine attendant was scheduled for you for 11/23/2024. Take furosemide 20 mg daily. Stop taking lisinopril. Your metoprolol dose was increased to 25 mg daily. On (11/22/2024), start taking Entresto twice a day as prescribed. Pending Studies at Discharge: No Stand-Alone Forms: [facility] [employer], Smoking Cessation Medications and DC Order Prescriptions: New furosemide 20 mg Tablet 20 mg PO QAM Qty: 30 0RF metoprolol succinate 25 mg Tablet Extended Release 24 Hr 25 mg PO DAILY Qty: 30 0RF sacubitril-valsartan [Entresto] 24-26 mg tablet 1 tab PO BID Qty: 60 0RF Continued atorvastatin 80 mg Tablet 80 mg PO QAM nitroglycerin 0.4 mg Tablet, Sublingual 0.4 mg sublingual DIRECTED PRN (Reason: Chest Pain) Rx Instructions: 1 sl q 5 mins for cp x 3 doses albuterol 90 mcg/actuation Aerosol 2 mcg INHALATION Q6H PRN (Reason: Wheezing) Rx Instructions: 2 puffs q 6 hrs as needed aspirin 81 mg Tablet,Delayed Release (Dr/Ec) 81 mg PO QAM escitalopram oxalate [Lexapro] 10 mg Tablet 10 mg PO QAM famotidine 20 mg Tablet 20 mg PO DAILY PRN (Reason: Acid Reflux) ipratropium-albuterol 0.5 mg-3 mg(2.5 mg base)/3 mL solution for nebulization 3 ml INHALATION UD PRN (Reason: sob) doxycycline hyclate 100 mg tablet 100 mg PO BID Rx Instructions: 2 more days Combivent Respimat 20-100 mcg/actuation mist 1 puff INHALATION UD Breztri Aerosphere 160-9-4.8 mcg/actuation HFA aerosol inhaler 1 inh INHALATION UD Discontinued lisinopril 2.5 mg Tablet 2.5 mg PO QAM metoprolol succinate 25 mg tablet extended release 24 hr 12.5 mg PO DAILY Discharge Orders: Discharge Order (Routine); Ordered 11/20/24 Ordered By: Beto Blum Admission Data Admit Date/Time: 11/19/24 14:32 Attending Provider: Beto Blum Admit Provider: Ciro Sanchez Primary Care Provider: Pao Boswell Other Providers: Jarvis Valadez; Ciro Sanchez
[2024-11-21] MEDS ORDERED: METOPROLOL SUCC 25MG EXT REL TAB PO SCH (09:00)
--- NOTE | 2024-11-22 16:21 | Electrocardiogram Report ---
Test Reason : Blood Pressure : */* mmHG Vent. Rate : 62 BPM Atrial Rate : 62 BPM P-R Int : 144 ms QRS Dur : 100 ms QT Int : 420 ms P-R-T Axes : 72 -82 139 degrees QTcB Int : 426 ms Sinus rhythm with frequent Premature ventricular complexes Incomplete right bundle branch block Left anterior fascicular block Nonspecific ST and T wave abnormality Abnormal ECG When compared with ECG of 19-Nov-2024 12:44, (unconfirmed) No significant change was found Confirmed by Bill Daniels ([id number]) on 11/22/2024 4:21:31 PM Referred By: REFERRED SELF Confirmed By: Bill Daniels
== END 2024-11-20 18:07 | disposition home or self-care (01) | DRG 287 ==
LOC: ED 12:09 → SUATTDRO 14:32 → CC 15:22 → 2S 15:43